=== PATIENT | male | born 1980 | race Caucasian/White ===

== ENCOUNTER → 2020-02-09 11:39 | Outpatient (BNVA) | payer BC, SELFPAY | PROVIDERS: PCP Internal Medicine; Referring Provider Internal Medicine; Visit Provider Internal Medicine Endocrinology, Diabetes & Metabolism | DX: Z76.89 Persons encountering health services in other specified circumstances (principal) ==

== ENCOUNTER 2020-04-06 09:26 | Day surgery (SDC) | payer BC, SELFPAY ==
[2020-03-25 20:09] VITALS: BMI 28.5
--- NOTE | 2020-04-05 10:17 | HO.ANESPROP2 ---
HPI - Anesthesia Eval Consult details Narrative: 39yo M for Colonoscopy PMFSH Past Medical History Medical History Asthma Hypogonadotropic hypogonadism Family History Family History Father Colon cancer Mother No problems noted. Surgical History Surgical History No history of previous surgery Social History Social History Smoking Status: Never smoker Second Hand Smoke Exposure: No Use of substances other than those prescribed or required for medical reasons: No Advance Directives: No Advance Directives Information Provided: No Advance Directives on File: No Recently lost weight without trying: No Meds Allergies Allergy/AdvReac Type Severity Reaction Status Date / Time No Known Allergies Allergy Verified 03/25/20 20:17 [No Known Allergies*] Home Medications Medication Instructions Recorded Confirmed Type albuterol sulfate 90 mcg/actuation 2 puff INHALATION QID PRN 02/09/20 03/25/20 History aerosol inhaler montelukast 10 mg tablet 10 mg PO DAILY 02/09/20 03/25/20 History testosterone cypionate 200 mg/mL 80 mg IM QWEEK 02/09/20 03/25/20 History intramuscular oil Exam Exam Date and Time: April 05, 2020 1017 Height,Weight and Vital Signs: Height 6 ft Weight 95.254 kg Assessment and Plan Assessment Anesthesia Assessment: Chart Reviewed
--- NOTE | 2020-04-06 10:03 | P.CONAN_ITS ---
History of Present Illness Consult details Consult date: 04/06/20 FORMERLY [facility], [facility] Past Medical History Medical History Asthma Hypogonadotropic hypogonadism Family History Family History Father Colon cancer Mother No problems noted. Surgical History Surgical History No history of previous surgery Social History Social History Smoking Status: Never smoker Second Hand Smoke Exposure: No Meds Allergies Allergy/AdvReac Type Severity Reaction Status Date / Time No Known Allergies Allergy Verified 03/25/20 20:17 [No Known Allergies*] Home Medications Medication Instructions Recorded Confirmed Type albuterol sulfate 90 mcg/actuation 2 puff INHALATION QID PRN 02/09/20 03/25/20 History aerosol inhaler montelukast 10 mg tablet 10 mg PO DAILY 02/09/20 03/25/20 History testosterone cypionate 200 mg/mL 80 mg IM QWEEK 02/09/20 03/25/20 History intramuscular oil Physical Exam Vital Signs: Vital Signs: Body Mass Index 28.5 Results Labs Labs: All other labs normal.
[2020-04-06 10:12] VITALS: BP 124/81; PULSE 71; RESP 18; TEMP 36.2; O2SAT 96
--- NOTE | 2020-04-06 10:31 | PM.OP ---
Brief Operative Note Date of Service: 04/06/20 Pre-op diagnosis: Colon cancer screening, family history of colon cancer (Dad in his 60's) Post-op diagnosis: other (Colon polyps, diverticulosis) Procedure: COLONOSCOPY TO CECUM WITH BIOPSIES AND SNARE POLYPECTOMY Consent: Indications for the procedure and potential complications of bleeding, perforation, reaction to medications and missed diagnosis were discussed with the patient and informed consent was obtained. Instrument: Olympus PCF H 190 L variable stiffness pediatric colonoscope Monitoring: Vital signs and clinical assessment, intermittent blood pressure monitoring, continuous EKG monitoring, Pulse oximetry and Carbon Dioxide monitoring were done throughout the procedure. Colon withdrawl time was 22 minutes. Procedure: The patient was placed in the left lateral decubitis position and pre-procedure medications were administered. After a digital rectal examination of the ano-rectum, the video colonoscope was inserted into the rectum and advanced through the colon to the cecum. The colonoscope was slowly withdrawn in a retrograde panoramic fashion and the colon mucosa was carefully examined including a retroflexed view of the rectum. Findings and interventions are described below. Procedure Difficulty: There was excessive spasm in the colon with some loop formation. Findings: Terminal Ileum: Not evaluated Cecum: Normal Ascending Colon: Normal Transverse Colon: A 4-5 mm sessile polyp removed with a cold biopsy. A 10 mm sessile polyp in the distal transverse colon removed with a hot snare. Descending Colon: Moderate diverticulosis Sigmoid Colon: Moderate diverticulosis Rectum: Normal Ano-rectum: Hypertrophied anal papilla Colon preparation: Good after copious irrigation. Impression and Post Procedure Diagnosis: Colonoscopy Findings: Two small to medium sized polyps removed Moderate diverticulosis seen in the left colon Plan: Await pathology results Patient has an appointment on 04/26/20 in the GI Clinic with Johanna Clay M.D.. Repeat Colonoscopy interval based on path results - in 3-5 years if polyps are adenomatous and due to positive family history of colon cancer (dad in his 60's). Above findings were reviewed with the patient and colon polyps and diverticulosis handouts were given in the discharge area Surgeon: Johanna Clay MD Anesthesia: MAC (Dr Marcos) Media Relations Coordinator: [place] Estimated blood loss (mL): 0 Pathology: other (A. TC polyps x 2) Condition: stable Disposition: PACU
--- NOTE | 2020-04-06 10:31 | W.PM.OPN ---
Operative Note Operative Note Date of Service: 04/06/20 Narrative: Pre-op diagnosis: Colon cancer screening Post-op diagnosis: other (colon polyps, diverticulosis, hemorrhoids) Procedure: COLONOSCOPY TILL CECUM WITH BIOPSIES Consent: Indications for the procedure and potential complications of bleeding, perforation, reaction to medications and missed diagnosis were discussed with the patient and informed consent was obtained. Instrument: Olympus PCF H 190 L variable stiffness pediatric colonoscope Monitoring: Vital signs and clinical assessment, intermittent blood pressure monitoring, continuous EKG monitoring, Pulse oximetry and Carbon Dioxide monitoring were done throughout the procedure. Colon withdrawl time was 20 minutes. Procedure: The patient was placed in the left lateral decubitis position and pre-procedure medications were administered. After a digital rectal examination of the ano-rectum, the video colonoscope was inserted into the rectum and advanced through the colon to the cecum. The colonoscope was slowly withdrawn in a retrograde panoramic fashion and the colon mucosa was carefully examined including a retroflexed view of the rectum. Findings and interventions are described below. Procedure Difficulty: Without difficulty Findings: Terminal Ileum: Not evaluated Cecum: Normal Ascending Colon: Normal Transverse Colon: Three 4-5 mm sessile polyps removed with a cold bx. Descending Colon: Moderate diverticulosis Sigmoid Colon: Two 3-5 mm diminutive appearing polyps removed with a cold bx. Moderate diverticulosis. Normal end to end anastomosis noted at 20 cms with a few sutures in place. Rectum: Normal Ano-rectum: Moderate internal hemorrhoids Colon preparation: Good Impression and Post Procedure Diagnosis: Colonoscopy Findings: Five small polyps removed. Moderate diverticulosis seen in the left colon. Normal end to end anastomosis noted at 20 cms with a few sutures in place. Moderate hemorrhoids on retroflexed exam. Plan: Await pathology results Patient has an appointment on 04/19/20 in the GI Clinic with Lashonda Hall FNP-BC. Repeat Colonoscopy interval based on path results - in 3-5 years if polyps are adenomatous and 10 years if polyps are hyperplastic. Above findings were reviewed with the patient and colon polyps and diverticulosis handouts were given in the discharge area Surgeon: Johanna Clay MD Anesthesia: MAC (Dr Marcos) Estimated blood loss (mL): 0 Pathology: other (A. TC polyps x 3, B. SC polyps x 2) Condition: stable Disposition: PACU
--- NOTE | 2020-04-06 10:31 | MHC.SHP ---
Pre-Procedural Eval Section A The patient is an INPATIENT: No The History & Physical has been completed within 30 days and I have reviewed it.: No Section B Chief Complaint: Screening Details of Present Illness: Colon cancer screening, FH of colon cancer. Denies dysphagia, heartburn, nausea or vomiting, change in appetite or weight. Patient denies change in bowel habits, black stools or rectal bleeding He was taking supplements which he discontinued several weeks ago. Takes Ibuprofen 250 mg, three tab 5 times a week. Sister recently diagnosed with breast cancer at age 40 yrs. Paternal cousin diagnosed with testicular cancer in his 30's. Relevant Family History (Specify if Yes): Yes Relevant Social History: None Present Medications: see Short Stay Collaborative assessment Medical History: Significant History (Hypogonadotropic hypogonadism) History of Previous Operations: No relevant previous surgery Allergies: Allergies Allergy/AdvReac Type Severity Reaction Status Date / Time No Known Allergies Allergy Verified 03/25/20 20:17 [No Known Allergies*] Review of Systems Sugical H&P ROS: Negative: Constitution, Cardiovascular, Respiratory and Gastrointestinal Exam Surgical H&P Exam: Normal: Heart, Normal: Lungs, Normal: Extremities and Normal: Abdomen Plan Diagnosis/Plan: Unchanged I have reviewed the history and physical and performed a pertinent physical examination on my patient. No changes have occurred unless specified.
[2020-04-06] MEDS: Lactated Ringers 1,000 ML 100 ML IVCONT (10:36)
--- NOTE | 2020-04-06 10:49 | P.CONAN_ITS ---
[facility] Past Medical History Medical History Asthma Hypogonadotropic hypogonadism Family History Family History Father Colon cancer Mother No problems noted. Surgical History Surgical History No history of previous surgery Social History Social History Smoking Status: Never smoker Second Hand Smoke Exposure: No Use of substances other than those prescribed or required for medical reasons: No Advance Directives: No Advance Directives Information Provided: No Advance Directives on File: No Recently lost weight without trying: No Meds Allergies Allergy/AdvReac Type Severity Reaction Status Date / Time No Known Allergies Allergy Verified 03/25/20 20:17 [No Known Allergies*] Home Medications Medication Instructions Recorded Confirmed Type albuterol sulfate 90 mcg/actuation 2 puff INHALATION QID PRN 02/09/20 03/25/20 History aerosol inhaler montelukast 10 mg tablet 10 mg PO DAILY 02/09/20 03/25/20 History testosterone cypionate 200 mg/mL 80 mg IM QWEEK 02/09/20 03/25/20 History intramuscular oil Exam Exam Date and Time: April 06, 2020 1049 Height,Weight and Vital Signs: Height 6 ft Weight 95.254 kg Last Vital Signs Temp 97.1 F 04/06/20 10:12 Pulse 71 04/06/20 10:12 Resp 18 04/06/20 10:12 BP 124/81 04/06/20 10:12 Pulse Ox 96 04/06/20 10:12 Airway Mallampati Class: II TM Dist: >3cm Neck ROM: Full Heart: RRR Lungs: cTA
[2020-04-06 11:22] VITALS: BP 102/53; PULSE 61; RESP 16; TEMP 36.1; O2SAT 98
[2020-04-06 11:37] VITALS: BP 123/77; PULSE 72; RESP 18; O2SAT 99
[2020-04-06 11:52] VITALS: BP 138/90; PULSE 65; RESP 20; O2SAT 99
== END 2020-04-06 12:27 | disposition home or self-care (01) ==
PROVIDERS: PCP Internal Medicine; Visit Provider Internal Medicine Gastroenterology
PROC: 0DJD8ZZ Inspection of Lower Intestinal Tract, Via Natural or Artificial Opening Endoscopic (ICD-10-PCS; CPT 45378; principal; 2020-04-06 10:50)
DX: Z12.11 Encounter for screening for malignant neoplasm of colon (principal); K63.5 Polyp of colon; K57.30 Diverticulosis of large intestine without perforation or abscess without bleeding; K64.8 Other hemorrhoids; Z98.0 Intestinal bypass and anastomosis status; J45.909 Unspecified asthma, uncomplicated; Z79.51 Long term (current) use of inhaled steroids; Z80.0 Family history of malignant neoplasm of digestive organs
CPT/HCPCS: 45380; 88305

== ENCOUNTER 2020-04-15 12:18 | Outpatient (REF) | payer BC, SELFPAY ==
[2020-04-15 12:45] LABS: COVID-19 Test Negative (Negative)
== END 2020-04-15 12:19 | disposition home or self-care (01) ==
LOC: HO.LAB 12:18
PROVIDERS: PCP Internal Medicine; Visit Provider Internal Medicine
DX: Z20.828 Contact with and (suspected) exposure to other viral communicable diseases (principal)
CPT/HCPCS: 36415; 87635; C9803

== ENCOUNTER 2020-04-19 14:44 | Outpatient (REF) | payer BC, SELFPAY ==
[2020-04-19 15:02] LABS: COVID-19 Test Negative (Negative); IDNOW Serial# 55D5AD1C
== END 2020-04-19 14:45 | disposition home or self-care (01) ==
LOC: HO.LAB 14:44
PROVIDERS: Visit Provider Internal Medicine
DX: Z20.828 Contact with and (suspected) exposure to other viral communicable diseases (principal)
CPT/HCPCS: 36415; 87635; C9803

== ENCOUNTER → 2020-04-26 12:43 | Outpatient (BNVA) | payer BC, SELFPAY | PROVIDERS: PCP Internal Medicine; Visit Provider Internal Medicine Gastroenterology ==

== ENCOUNTER 2020-05-06 10:59 | Outpatient (REF) | payer BC, SELFPAY ==
[2020-05-06 14:28] LABS: Cholesterol 170 mg/dL; HDL Cholesterol 50 mg/dL; Hematocrit 45.4 % (42-52); Hemoglobin 15.6 g/dl (14.0-18.0); LDL Cholesterol Calculated 106 mg/dl; Triglycerides 73 mg/dL
[2020-05-06 14:48] LABS: PSA,Total (Free>4and<10) 0.87 ng/mL (0.00-4.00)
[2020-05-07 10:52] LABS: Sex Hormone Binding Globulin 24 nmol/L (10-50)
[2020-05-11 15:12] LABS: Testosterone, Free 87.2 pg/mL (35.0-155.0); Testosterone, Total 447 ng/dL (250-1100)
[2020-05-15 11:42] LABS: Testosterone-Albumin 4.4 g/dL (3.6-5.1); Testosterone-Bioavailable 121.9 ng/dL (110.0-575.0); Testosterone-Free 60.5 pg/mL (46.0-224.0); Testosterone-SHBG 25 nmol/L (10-50); Testosterone-Total 372 ng/dL (250-1100)
== END 2020-05-06 11:00 | disposition home or self-care (01) ==
LOC: HO.HMGCLDS 10:59
PROVIDERS: PCP Internal Medicine; Visit Provider Internal Medicine Endocrinology, Diabetes & Metabolism
DX: E23.0 Hypopituitarism (principal)
CPT/HCPCS: 36415; 80061; 84153; 84270; 84402; 84403; 85014; 85018

== ENCOUNTER → 2020-05-31 14:24 | Outpatient (BNVA) | payer BC, SELFPAY | PROVIDERS: PCP Internal Medicine; Visit Provider Internal Medicine Endocrinology, Diabetes & Metabolism ==

== ENCOUNTER → 2021-01-20 09:17 | Outpatient (BNVA) | payer OTHER, SELFPAY | PROVIDERS: PCP Internal Medicine; Visit Provider Physician Assistant | DX: S76.311A Strain of muscle, fascia and tendon of the posterior muscle group at thigh level, right thigh, initial encounter (principal); Y93.02 Activity, running | CPT/HCPCS: 99203 ==

== ENCOUNTER → 2021-02-09 13:17 | Outpatient (BNVA) | payer BC, SELFPAY | PROVIDERS: PCP Internal Medicine; Visit Provider Internal Medicine ==

== ENCOUNTER 2021-03-16 10:34 | Outpatient (REF) | payer BC, SELFPAY ==
[2021-03-16 13:52] LABS: MANUAL DIFF FLAG NO
[2021-03-16 13:55] LABS: Basophils Percent Auto 0.9 % (0-2); Eosinophils Absolute Auto 0.1 X10*3/uL (0.0-0.4); Eosinophils Percent Auto 1.7 % (0-4); Hematocrit 46.5 % (42.0-52.0); Hemoglobin 15.7 g/dl (14.0-18.0); Lymphocytes Absolute Auto 1.5 X10*3/uL (1.2-4.9); Lymphocytes Percent Auto 43.3 % (20-40); Mean Corpuscular HGB Conc 33.8 g/dl (31.0-36.0); Mean Corpuscular Hemoglobin 31.1 pg (27.0-33.0); Mean Corpuscular Volume 92.1 fL (80.0-98.0); Mean Platelet Volume 11.6 fL (9.4-12.4); Monocytes Absolute Auto 0.3 X10*3/uL (0.1-1.2); Monocytes Percent Auto 9.4 % (2-11); Neutrophils Absolute Auto 1.6 x10*3/uL (2.0-8.3); Neutrophils Percent Auto 44.7 % (45-73); Platelet Count 196 X10*3/uL (160-400); Red Blood Count 5.05 X10*6/uL (4.60-5.80); Red Cell Distribution Width 12.2 % (11.0-16.0); White Blood Count 3.5 X10*3/uL (4.8-10.8)
[2021-03-16 14:14] LABS: Alanine Aminotransferase 44 U/L (0-40); Albumin Level 4.4 g/dL (3.5-5.0); Alkaline Phosphatase 55 U/L (39-117); Anion Gap 10 (12-20); Aspartate Amino Transferase 33 U/L (5-37); Bilirubin Total 0.9 mg/dL (0.0-1.0); Blood Urea Nitrogen 14 mg/dL (9-16); Calcium 9.9 mg/dL (8.4-10.2); Carbon Dioxide 30 mmol/L (22-29); Chloride 103 mmol/L (96-108); Cholesterol 165 mg/dL; Estimated Glomerular Filt Rate > 60; Glucose Fasting 80 mg/dL (60-99); HDL Cholesterol 53 mg/dL; LDL Cholesterol Calculated 99 mg/dl; Potassium 3.9 mmol/L (3.3-5.1); Sodium 139 mmol/L (135-145); Total Protein 7.3 g/dL (6.5-8.0); Triglycerides 68 mg/dL
[2021-03-16 22:59] LABS: Prostate Specific Antigen 0.74 ng/mL (<0.05-4.0)
[2021-03-17 23:47] LABS: LDL Cholesterol Direct 95 mg/dL (<100)
[2021-03-18 06:07] LABS: Sex Hormone Binding Globulin 32 nmol/L (10-50)
[2021-03-21 16:46] LABS: Testosterone, Free 70.4 pg/mL (35.0-155.0); Testosterone, Total 466 ng/dL (250-1100)
== END 2021-03-16 10:35 | disposition home or self-care (01) ==
LOC: HO.HMGCLDS 10:34
PROVIDERS: PCP Internal Medicine; Visit Provider Internal Medicine
DX: Z00.00 Encounter for general adult medical examination without abnormal findings (principal); Z12.5 Encounter for screening for malignant neoplasm of prostate; E23.0 Hypopituitarism; E11.9 Type 2 diabetes mellitus without complications
CPT/HCPCS: 36415; 80053; 80061; 83721; 84153; 84270; 84402; 84403; 85025

== ENCOUNTER 2021-07-04 10:13 | Outpatient (REF) | payer BC, SELFPAY ==
[2021-07-04 11:40] LABS: Hematocrit 49.6 % (42.0-52.0); Hemoglobin 16.5 g/dl (14.0-18.0)
[2021-07-04 12:11] LABS: Prostate Specific Antigen 0.94 ng/mL (<0.05-4.0)
[2021-07-05 17:25] LABS: Sex Hormone Binding Globulin 22 nmol/L (10-50)
[2021-07-08 16:37] LABS: Testosterone, Free 119.6 pg/mL (35.0-155.0); Testosterone, Total 509 ng/dL (250-1100)
== END 2021-07-04 10:14 | disposition home or self-care (01) ==
LOC: HO.HMGCLDS 10:13
PROVIDERS: Visit Provider Internal Medicine
DX: Z12.5 Encounter for screening for malignant neoplasm of prostate (principal); E23.0 Hypopituitarism
CPT/HCPCS: 36415; 84153; 84270; 84402; 84403; 85014; 85018

== ENCOUNTER → 2021-08-26 14:52 | Outpatient (BNVA) | payer BC, SELFPAY | PROVIDERS: PCP Internal Medicine; Visit Provider Internal Medicine Endocrinology, Diabetes & Metabolism | DX: E23.0 Hypopituitarism (principal) ==

== ENCOUNTER 2022-08-16 09:49 | Outpatient (REF) | payer BC, SELFPAY ==
[2022-08-16 11:22] LABS: MANUAL DIFF FLAG NO
[2022-08-16 11:33] LABS: Basophils Percent Auto 0.8 % (0-2); Eosinophils Absolute Auto 0.1 X10*3/uL (0.0-0.4); Eosinophils Percent Auto 1.6 % (0-4); Hematocrit 50.3 % (42.0-52.0); Hemoglobin 17.5 g/dl (14.0-18.0); Imm Gran Abs Auto 0.01 X10*3/uL (0.00-0.03); Imm Gran Pct Auto 0.3 % (0.0-0.4); Lymphocytes Absolute Auto 1.2 X10*3/uL (1.2-4.9); Lymphocytes Percent Auto 30.3 % (20-40); Mean Corpuscular HGB Conc 34.8 g/dl (31.0-36.0); Mean Corpuscular Hemoglobin 31.9 pg (27.0-33.0); Mean Corpuscular Volume 91.6 fL (80.0-98.0); Mean Platelet Volume 11.1 fL (9.4-12.4); Monocytes Absolute Auto 0.3 X10*3/uL (0.1-1.2); Monocytes Percent Auto 8.2 % (2-11); Neutrophils Absolute Auto 2.2 x10*3/uL (2.0-8.3); Neutrophils Percent Auto 58.8 % (45-73); Platelet Count 217 X10*3/uL (160-400); Red Blood Count 5.49 X10*6/uL (4.60-5.80); Red Cell Distribution Width 12.3 % (11.0-16.0); White Blood Count 3.8 X10*3/uL (4.8-10.8)
[2022-08-16 12:28] LABS: Alanine Aminotransferase 69 U/L (0-40); Albumin Level 4.5 g/dL (3.5-5.0); Alkaline Phosphatase 64 U/L (39-117); Anion Gap 11 (12-20); Aspartate Amino Transferase 41 U/L (5-37); Bilirubin Total 0.8 mg/dL (0.0-1.0); Blood Urea Nitrogen 10 mg/dL (9-16); Calcium 9.6 mg/dL (8.4-10.2); Carbon Dioxide 29 mmol/L (22-29); Chloride 106 mmol/L (96-108); Cholesterol 195 mg/dL; Estimated Glomerular Filt Rate > 60; Glucose Fasting 86 mg/dL (60-99); HDL Cholesterol 42 mg/dL; LDL Cholesterol Calculated 134 mg/dl; Potassium 4.5 mmol/L (3.3-5.1); Sodium 141 mmol/L (135-145); Thyroid Stimulating Hormone 1.21 uIU/mL (0.32-4.0); Total Protein 7.2 g/dL (6.5-8.0); Triglycerides 97 mg/dL
[2022-08-23 18:44] LABS: Testosterone, Free 312.4 pg/mL (35.0-155.0); Testosterone, Total 1038 ng/dL (250-1100)
== END 2022-08-16 09:50 | disposition home or self-care (01) ==
LOC: HO.HMGCLDS 09:49
PROVIDERS: PCP Internal Medicine; Visit Provider Internal Medicine
DX: E23.0 Hypopituitarism (principal); D64.9 Anemia, unspecified; N28.9 Disorder of kidney and ureter, unspecified; E03.9 Hypothyroidism, unspecified; E78.5 Hyperlipidemia, unspecified
CPT/HCPCS: 36415; 80053; 80061; 84402; 84403; 84443; 85025

== ENCOUNTER → 2022-08-24 13:01 | Outpatient (BNVA) | payer BC, SELFPAY | PROVIDERS: PCP Internal Medicine; Visit Provider Internal Medicine Endocrinology, Diabetes & Metabolism ==

== ENCOUNTER 2022-08-30 13:56 | Outpatient (REF) | payer BC, SELFPAY ==
[2022-08-30 17:04] LABS: Ferritin 180 ng/mL (20-250)
[2022-09-08 15:59] LABS: Testosterone, Free 62.9 pg/mL (35.0-155.0); Testosterone, Total 271 ng/dL (250-1100)
== END 2022-08-30 13:57 | disposition home or self-care (01) ==
LOC: HO.HMGCLDS 13:56
PROVIDERS: PCP Internal Medicine; Visit Provider Internal Medicine Endocrinology, Diabetes & Metabolism
DX: E23.0 Hypopituitarism (principal)
CPT/HCPCS: 36415; 82728; 84402; 84403

== ENCOUNTER 2022-09-05 13:05 | Outpatient (REF) | payer BC, SELFPAY ==
[2022-09-05 14:19] LABS: Appearance Urine Clear; Color Urine Yellow; Glucose Urine UA Negative (Negative); Leukocyte Esterase Urine Negative (Negative); Nitrite Urine Negative (Negative); Urine Blood Negative (Negative); Urine Ketones Negative (Negative); Urine Protein Negative (Neg-Trace)
== END 2022-09-05 13:06 | disposition home or self-care (01) ==
LOC: HO.HMGCLDS 13:05
PROVIDERS: PCP Internal Medicine; Visit Provider Internal Medicine
DX: R39.9 Unspecified symptoms and signs involving the genitourinary system (principal)
CPT/HCPCS: 81003

== ENCOUNTER 2022-12-22 15:31 | Outpatient (AMB) | payer BC, SELFPAY ==
--- NOTE | 2022-12-22 16:18 | AM.OFFWIN_ITS ---
Intake Vital Signs 12/22/22 16:19 Height 6 ft Weight 229 lb BMI 31.1 BP 112/78 Blood Pressure Location Lt brachial Position Sitting Pulse 72 Pulse Source Pulse Oximeter Pulse Oximetry (%) 97 Oxygen Delivery Method Room Air Intake Visit Reasons: EST/tore right shoulder Intake Note: Patient here for tore right shoulder at the Gym today. Patient Tobacco Use Status: Never used Tobacco Allergies No Known Allergies [No Known Allergies*] Allergy (Verified 12/22/22 16:21) Do you need a note to return to daycare/school/sports/work: Yes HPI HPI Comments History of Present Illness Details This is a 42-year-old male who presents to the office today for sick visit. Patient states he was doing bench press at the gym with heavier weights than normal and he felt a ?pop? and ?tear? of his right pectoralis muscle. Patient states he has mild pain to the right pectoralis at this time. He denies any numbness/weakness/paresthesias. [facility] Medical History (Updated 12/22/22 @ 17:16 by [employer]) Pectoralis muscle strain Asthma Elevated LFTs Asthma Hypogonadotropic hypogonadism Surgical History History of colonoscopy Family History Paternal Grandfather Colon cancer Mother No problems noted. Father Alive and well Social History Housing: House Alcohol intake: current Alcohol intake frequency: 3 or more drinks per day Alcohol type: beer Patient Tobacco Use Status: Never used Tobacco e-Cigarette/Vaping Use: Never Used Second Hand Smoke Exposure: No service: No Current occupational status: employed Cognitive needs: No Hearing needs: No Vision needs: No Review of Systems Const All systems reviewed & are unremarkable except as noted in HPI and below Reports no additional complaints Eyes Reports no additional complaints ENT Reports no additional complaints Card Reports no additional complaints Resp Reports no additional complaints GI Reports no additional complaints Reports no additional complaints Musc Reports no additional complaints Skin/Breast Reports system reviewed and no additional complaints, except as documented Neuro Reports no additional complaints Psych Reports no additional complaints Endo Reports no additional complaints Ty/Lymph Reports no additional complaints Aller/Immun Reports no additional complaints Physical Exam Vital Signs: Last Vital Signs Pulse 72 12/22/22 16:19 BP 112/78 12/22/22 16:19 Pulse Ox 97 12/22/22 16:19 Oxygen Delivery Method Room Air 12/22/22 16:19 BMI result Body Mass Index 31.1 Const General: cooperative, healthy appearing, no acute distress and well developed Orientation/consciousness: patient oriented x3 HEENT Head: Yes normal to inspection Ears: hearing grossly normal bilaterally General nose exam: Normal external nose present Face and sinus: Yes normal facial exam Mouth: Normal oral and palatal mucosa present Eyes General: appearance normal, both eyes and all related structures Pupils: Equal, round and reactive pupils present EOM: EOMs intact bilaterally Chest Other: Tenderness to palpation of the right pectoralis muscle without edema or ecchymosis. Resp Effort & Inspection: normal respiratory effort and no respiratory distress Auscultation: clear to auscultation bilaterally Cardio Rate: regular rate Rhythm: regular rhythm Heart sounds: no gallops, no murmurs and no rubs Peripheral pulses: Peripheral pulses 2+ throughout GI Inspection: No distended Palpation (GI): Soft to palpation and nontender Auscultation: normal bowel sounds Skin General skin exam: no rashes or lesions noted Neuro General: patient oriented x3 Cranial nerves: Yes CN's II-XII intact bilaterally and Yes Equal, round and reactive pupils present Gait exam (Neuro): Normal gait present Motor exam (neuro): 5/5 motor strength present throughout Extrem Other: Patient has full range of motion of the right shoulder with flexion, extension, internal/external rotation, forward flexion and, and pushing/pulling motion but he does have with some pain in his pectoralis with pushing as well as internal/external rotation. General: Yes normal to inspection, Yes full ROM and Yes no clubbing, cyanosis or edema Psych Appearance: grossly normal Mental Status: mental status grossly normal Assessment & Plan Assessment & Plan (1) Pectoralis muscle strain: Code(s): S29.011A - Strain of muscle and tendon of front wall of thorax, initial encounter Qualifiers: Encounter type: initial encounter Qualified Code(s): S29.011A - Strain of muscle and tendon of front wall of thorax, initial encounter Plan This is a 42-year-old male who presents to the office complaining of possible pectoralis muscle tear/strain. Patient states he was doing a bench press at the gym when he felt a ?pop? and a ?tear ?. On physical examination, patient has full range of motion of the shoulder in all planes but he does have some pain with range of motion he has tenderness to palpation of the right pectoralis muscle. Check x-ray of the right shoulder to evaluate for avulsion fracture. Recommend rest/activity modification, ice to the area, and elevation of the extremity. Continue with acetaminophen/ibuprofen for pain management as long as patient has no medical contraindications. Patient was given 5% lidocaine patches to the area as well as p.o. methocarbamol 750 mg 3 times daily as needed for muscle spasms. Patient was given orthopedic referral for further evaluation and management. Patient was instructed to stay out of gym until he is fully healed. Patient verbalizes understanding and he is in agreement with the plan. Orders: Orders XR shoulder RT min 2V Today S29.011A - Strain of muscle and tendon of front wall of thorax, initial encounter Referrals Orthopedics Referral S29.011A - Strain of muscle and tendon of front wall of thorax, initial encounter Medications: New methocarbamol 750 mg PO Q8H PRN 21 tabs 0RF muscle spasm lidocaine 5% leave on most painful area for up to 12 hrs 1 patch topical DAILY 15 ea 0RF Coding Level of Care Code Est Pt Level 3 (94870) Diagnoses Pectoralis muscle strain, initial encounter S29.011A Encounter type: initial encounter
[2022-12-22 16:19] VITALS: BP 112/78; PULSE 72; O2SAT 97; BMI 31.1
== END 2022-12-22 17:07 | disposition home or self-care (01) ==
PROVIDERS: PCP Internal Medicine; Visit Provider Physician Assistant Medical
DX: S29.011A Strain of muscle and tendon of front wall of thorax, initial encounter (principal)
CPT/HCPCS: 99213

== ENCOUNTER 2022-12-22 16:56 | Outpatient (REF) | payer BC, SELFPAY ==
--- NOTE | ~2022-12-22 | XR_ITS ---
EXAMINATION: XR SHOULDER, RIGHT CLINICAL INFORMATION: Strain COMPARISON: None available. TECHNIQUE: AP external rotation, Grashey, scapular Y, and axillary views of the right shoulder. FINDINGS: No fracture. Glenohumeral and acromioclavicular alignment is anatomic with normal joint space. No abnormal soft tissue calcifications. XR/XR shoulder RT min 2V IMPRESSION: No acute osseous abnormality.
== END 2022-12-22 16:57 | disposition home or self-care (01) ==
LOC: HO.HMGCX 16:56
PROVIDERS: PCP Internal Medicine; Visit Provider Physician Assistant Medical
DX: S29.011A Strain of muscle and tendon of front wall of thorax, initial encounter (principal)
CPT/HCPCS: 73030

== ENCOUNTER 2023-05-21 12:40 | Outpatient (AMB) | payer BC, SELFPAY ==
[2023-05-21 12:41] VITALS: BP 122/80; PULSE 87; O2SAT 97; BMI 30.1
--- NOTE | 2023-05-21 12:41 | A.OFFPC_ITS ---
Vital Signs 05/21/23 12:41 Height 6 ft Weight 222 lb BMI 30.1 BP 122/80 Blood Pressure Location Lt brachial Position Sitting Pulse 87 Pulse Source Pulse Oximeter Pulse Oximetry (%) 97 Oxygen Delivery Method Room Air Intake Visit Reasons: Annual Exam Segment Block Layer Required: No Admittance Attendant: Not Required per policy Accompanied by: Self / Same As Patient Allergies No Known Allergies [No Known Allergies*] Allergy (Verified 05/21/23 12:42) Medication List - Last Reconciled 05/23/23 by Wesly Presley MD albuterol sulfate 90 mcg/actuation 2 puffs inhalation QID PRN bisacodyl (Dulcolax (bisacodyl)) 20 mg (4 x 5 mg) PO ONCE 1 day fluticasone propionate 220 mcg/actuation 2 puffs inhalation BID fluticasone propionate 44 mcg/actuation (Flovent HFA) 2 puffs inhalation BID methocarbamol 750 mg PO Q8H PRN montelukast (Singulair) 10 mg PO BEDTIME polyethylene glycol 3350 (Miralax) 238 grams PO ONCE 1 day syringe with needle, safety As directed syringe with needle, safety (BD Integra Syringe) Once a week testosterone cypionate 70 mg (0.35 mL) IM QWEEK 30 days Tobacco use date assessed: 05/21/23 Dental Screening Dental Screen Date: 05/21/23 Did you have a dental visit in the last 12 months?: Yes Did you have a dental problem in the last 6 months where you did not have access to dental care?: No Was dental information given to patient?: Patient has dentist HPI Annual Exam HPI Details asthma and androgen def; doing well PENDING SALE TO [facility] Medical History (Updated 12/22/22 @ 17:16 by MIGUEL Gaming) Pectoralis muscle strain Asthma Elevated LFTs Asthma Hypogonadotropic hypogonadism Surgical History History of colonoscopy Family History Paternal Grandfather Colon cancer Mother No problems noted. Father Alive and well Social History Housing: House Alcohol intake: current Alcohol intake frequency: 3 or more drinks per day Alcohol type: beer Patient Tobacco Use Status: Never used Tobacco e-Cigarette/Vaping Use: Never Used Second Hand Smoke Exposure: No service: No Current occupational status: employed Cognitive needs: No Hearing needs: No Vision needs: No Questionnaire PHQ-9 Over the last 2 weeks, how often have you been bothered by any of the following problems? 1. Little interest or pleasure in doing things: not at all 2. Feeling down, depressed, or hopeless: not at all 3. Trouble falling or staying asleep, or sleeping too much: not at all 4. Feeling tired or having little energy: not at all 5. Poor appetite or overeating: not at all 6. Feeling bad about yourself - or that you are a failure or have let yourself or your family down: not at all 7. Trouble concentrating on things, such as reading the newspaper or watching television: not at all 8. Moving or speaking so slowly that other people could have noticed. Or the opposite - being so fidgety or restless that you have been moving around a lot more than usual: not at all 9. Thoughts that you would be better off or of hurting yourself in some way: not at all Total score: 0 Depression Screening Interpretation: Negative Depression Screening Done: Yes 87973 - PHQ-9 Billing: Yes Source: Developed by Drs. Hakan Pickens, Paris Anglin, Ashwin Galindo and colleagues, with an educational loki from [employer]. Thrive Questionnaire Date Thrive assessed: 05/21/23 I am a: Patient What is your living situation today?: I have a steady place to live Within the past 12 months, did the food you bought not last and you didn't have the money to get more?: Never true Within the past 12 months, did you worry whether your food would run out before you got money to buy more?: Never true Do you have trouble paying for medicines?: No Do you have trouble getting transportation to medical appointments?: No Do you have trouble paying your heating and electricity bill?: No Do you have trouble taking care of your child, family member or friend?: No Do you have trouble with day-to-day activities such as bathing, preparing meals, shopping, managing finances, etc.?: No Are you currently unemployed and looking for a job?: No Are you interested in more education?: No Please select the resources that you would like help with: None THRIVE Score: 0 AUDIT C Alcohol Use Questionnaire (AUDIT-C) 1. How often do you have a drink containing alcohol?: 4 or more times a week 2. How many drinks containing alcohol do you have on a typical day when you are drinking?: 3 or 4 3. How often do you have six or more drinks on one occasion?: Monthly Total Score: 7 Score Reviewed/Action Taken: Yes AMINATA-7 AMB Questionnaire AMINATA-7 Date AMINATA - 7 assessed: 05/21/23 Feeling nervous, anxious, or on edge: 0 = Not at all Not being able to stop or control worryin = Not at all Worrying too much about different things: 0 = Not at all Trouble relaxin = Not at all Being so restless that it is hard to sit still: 0 = Not at all Becoming easily annoyed or irritable: 0 = Not at all Feeling afraid as if something awful might happen: 0 = Not at all Total AMINATA-7 score (0-4 normal; 5-9 mild; 10-14 moderate; 15-21 severe): 0 Source: Developed by Drs. Hakan Pickens, Paris Anglin, Ashwin Galindo and colleagues, with an educational loki from [employer]. AMINATA-7 Assessment Billing AMINATA-7 Assessment Tool: AMINATA-7 Assessment 62790 Review of Systems Const Denies chills, Denies fatigue, Denies headache(s) and Denies weight loss Eyes Denies change in vision, Denies diplopia and Denies eye pain ENT Denies vertigo, Denies dizziness, Denies headache(s) and Denies nasal discharge Card Denies chest pain, Denies rapid heart rate and Denies dyspnea on exertion Resp Denies chest congestion, Denies cough, Denies pain with cough and Denies dyspnea on exertion GI Denies abdominal pain, Denies hematochezia and Denies change in bowel habits Musc Denies myalgias, Denies arthralgias and Denies joint swelling Skin/Breast Denies lesions and Denies unusual bruising Neuro Denies vertigo, Denies dizziness, Denies headache(s) and Denies focal weakness Endo Denies fatigue Physical exam (Primary Care) Vital Signs: Last Vital Signs Pulse 87 05/21/23 12:41 BP 122/80 05/21/23 12:41 Pulse Ox 97 05/21/23 12:41 Oxygen Delivery Method Room Air 05/21/23 12:41 BMI result Body Mass Index 30.1 Tobacco/Smoking Status: Tobacco use Status Tobacco use date assessed 05/21/23 05/21/23 12:43 Patient Tobacco Use Status Never used Tobacco 05/21/23 12:43 e-Cigarette/Vaping Use Never Used 05/21/23 12:43 PHQ-9: PHQ-9 Score PHQ-9: Total score 0 05/21/23 12:49 Depression Screening Interpretation: Negative Thrive Assessment: Date of Thrive Assessment Date Thrive assessed 05/21/23 05/21/23 12:43 Const General: cooperative, healthy appearing and no acute distress Orientation/consciousness: oriented to person, oriented to place and oriented to time HENMT Head: Yes normal to inspection, Yes normocephalic and Yes atraumatic Mouth: Normal oral and palatal mucosa present and tongue normal Throat: Yes posterior oropharynx normal and Yes uvula midline Eyes General: appearance normal, both eyes and all related structures Neck Neck: Yes normal visual inspection, Yes full ROM and Yes no lymphadenopathy Thyroid: Thyroid normal Carotids: normal carotid upstroke Chest Chest palpation & inspection: normal inspection of the chest Resp Effort & Inspection: normal respiratory effort and able to speak in complete sentences Auscultation: clear to auscultation bilaterally Cardio Jugular venous distension: no JVD Palpation: normal PMI Rate: regular rate Rhythm: regular rhythm Heart sounds: S1 normal heart sound present and S2 normal heart sound present GI Inspection: Yes normal to inspection Palpation (GI): Soft to palpation and No hepatosplenomegaly present Auscultation: normal bowel sounds General: Yes no CVA tenderness Back/Spine/Pelvis Back: no CVA tenderness Skin General skin exam: no rashes or lesions noted Neuro General: oriented to person, oriented to place and oriented to time Extrem General: Yes normal to inspection and Yes full ROM Assessment and Plan Assessment & Plan (1) Physical exam: Code(s): Z00.00 - Encounter for general adult medical examination without abnormal findings Plan: stable; do labs (2) Hypogonadotropic hypogonadism: Code(s): E23.0 - Hypopituitarism Plan: per endo (3) Asthma: Code(s): J45.909 - Unspecified asthma, uncomplicated Plan: stable; same rx Orders: Orders Complete Blood Count Auto Diff 05/21/23 D64.9 - Anemia, unspecified Comprehensive [place]. Panel Fast 05/21/23 N28.9 - Disorder of kidney and ureter, unspecified Testosterone, Free/Total 05/21/23 R68.82 - Decreased libido Lipid Panel 05/21/23 E78.5 - Hyperlipidemia, unspecified Prostate Specific Antigen Scr 05/21/23 Z00.00 - Encounter for general adult medical examination without abnormal findings Coding Level of Care Code Est Pt Prev Care 40-64y(35974) Diagnoses Physical exam Z00.00 Hypogonadotropic hypogonadism E23.0 Asthma J45.909 Additional Codes AMINATA-7 Assessment Billing - AMINATA-7 Assessment Tool: AMINATA-7 Assessment [id number] ([id number])
== END 2023-05-21 13:08 | disposition home or self-care (01) ==
PROVIDERS: Visit Provider Internal Medicine
DX: Z00.00 Encounter for general adult medical examination without abnormal findings (principal); E23.0 Hypopituitarism; J45.909 Unspecified asthma, uncomplicated
CPT/HCPCS: 99396

== ENCOUNTER 2023-08-24 11:15 | Day surgery (SDC) | payer BC, SELFPAY ==
--- NOTE | 2023-08-22 14:32 | HO.ANESPROP2 ---
Documented by User: Kirsty Grady NP 08/22/23 14:32 HPI - Anesthesia Eval Consult details Narrative: 42yo M for Colonoscopy [facility] Active Problems Active Problems: All Active Problems Pectoralis muscle strain (Acute) Biceps strain (Acute) Asthma (Acute) Physical exam (Acute) Serrated polyp of colon (Acute) Diverticulosis of colon (Acute) Hypogonadotropic hypogonadism (Acute) Past Medical History Medical History (Updated 12/22/22 @ 17:16 by MIGUEL [employer]) Pectoralis muscle strain Asthma Elevated LFTs Asthma Hypogonadotropic hypogonadism Family History Family History Paternal Grandfather Colon cancer Mother No problems noted. Father Alive and well Surgical History Surgical History History of colonoscopy Social History Social History Housing: House Alcohol intake: current Alcohol intake frequency: does not drink Alcohol type: beer Patient Tobacco Use Status: Never used Tobacco e-Cigarette/Vaping Use: Never Used Second Hand Smoke Exposure: No Are you DNR?: No Advance Directives: No Advance Directives Information Provided: Yes Nutrition Risks: No Nutritional Risk service: No Current occupational status: employed Cognitive needs: No Hearing needs: No Vision needs: No Meds Allergies Allergy/AdvReac Type Severity Reaction Status Date / Time No Known Allergies Allergy Verified 05/21/23 12:42 [No Known Allergies*] Home Medications ?Medication ?Instructions ?Recorded ?Confirmed ?Last Taken ?Type fluticasone propionate 44 2 puff inhalation BID 02/09/21 05/23/23 Unknown History mcg/actuation HFA aerosol inhaler (Flovent HFA) Assessment and Plan Assessment Anesthesia Assessment: Chart Reviewed Documented by User: Skye Forrest MD 08/24/23 11:54 [facility] Past Medical History Medical History (Updated 12/22/22 @ 17:16 by MIGUEL [employer]) Pectoralis muscle strain Asthma Elevated LFTs Asthma Hypogonadotropic hypogonadism Family History Family History Paternal Grandfather Colon cancer Mother No problems noted. Father Alive and well Family history of problems with anesthesia: No Surgical History Surgical History History of colonoscopy History of Problems with Anesthesia: No Social History Social History Housing: House Alcohol intake: current Alcohol intake frequency: does not drink Alcohol type: beer Patient Tobacco Use Status: Never used Tobacco e-Cigarette/Vaping Use: Never Used Second Hand Smoke Exposure: No Are you DNR?: No Advance Directives: No Advance Directives Information Provided: Yes Nutrition Risks: No Nutritional Risk service: No Current occupational status: employed Cognitive needs: No Hearing needs: No Vision needs: No Meds Allergies Allergy/AdvReac Type Severity Reaction Status Date / Time No Known Allergies Allergy Verified 05/21/23 12:42 [No Known Allergies*] Home Medications ?Medication ?Instructions ?Recorded ?Confirmed ?Last Taken ?Type fluticasone propionate 44 2 puff inhalation BID 02/09/21 05/23/23 Unknown History mcg/actuation HFA aerosol inhaler (Flovent HFA) Exam Airway Mallampati Class: II (mossing one tooth top right lateral) TM Dist: >3cm Neck ROM: Full Heart: rrr Lungs: cta Assessment and Plan Assessment Anesthesia Assessment: Anesthesia Plan Discussed Final Anesthetic Review Family History of Problems with Anesthesia: No History of Problems with Anesthesia: No NPO: Yes ASA Class: II Final Preanesthetic Review: No Changes in Pt Med Stat, Meds/Allgs Chart Reviewed and Consent Obtained/Reviewed Patient Risk: Low Procedure Risk: Low Anesthetic Plan Anesthetic Plan: MAC: Disposition: Standard PACU
[2023-08-24 11:24] VITALS: BP 140/78; PULSE 81; RESP 18; TEMP 36.8; O2SAT 97; BMI 30.1
[2023-08-24] MEDS: Lactated Ringers 1,000 ML 100 ML IVCONT (11:46)
--- NOTE | 2023-08-24 11:55 | MHC.SHP ---
Pre-Procedural Eval Section A - 24 Hr Update-Section A only Date of Service: 08/24/23 The patient is an INPATIENT: No The patient has been examined within 24 hours of the surgical procedure. The History & Physical has been completed within 30 days and I have reviewed it.: No Section B - Complete if H&P > 30 days Chief Complaint: Surveillance of colon polyps Relevant Family History (Specify if Yes): Yes Relevant Social History: None Present Medications: see Short Stay Collaborative assessment Medical History: Significant History (Pectoralis muscle strain Asthma Elevated LFTs Asthma Hypogonadotropic hypogonadism) History of Previous Operations: Relevant previous surgery/procedure and date(s) (History of colonoscopy) Allergies: Allergies Allergy/AdvReac Type Severity Reaction Status Date / Time No Known Allergies Allergy Verified 05/21/23 12:42 [No Known Allergies*] Review of Systems Sugical H&P ROS: Negative: Constitution, Cardiovascular, Respiratory and Gastrointestinal Exam Surgical H&P Exam: Normal: Heart, Normal: Lungs, Normal: Extremities and Normal: Abdomen Plan Diagnosis/Plan: Unchanged I have reviewed the history and physical and performed a pertinent physical examination on my patient. No changes have occurred unless specified. Time Spent With Patient Time: Total time managing care of this patient today ____ minutes.
[2023-08-24 14:07] VITALS: BP 110/67; PULSE 64; RESP 16; TEMP 36.6; O2SAT 97
--- NOTE | 2023-08-24 14:07 | P.OPN-COLO_ITS ---
Colonoscopy Operative Note Operative Note Date of Service: 08/24/23 Narrative: COLONOSCOPY TILL CECUM WITH BIOPSIES AND SNARE POLYPECTOMY Pre-op diagnosis: Surveillance for colon polyps. Post-op diagnosis:? Colon polyps, Diverticulosis, hemorrhoids Endoscopist:? Johanna Clay MD Anesthesia:?MAC Consent: Indications for the procedure and potential complications of bleeding, perforation, reaction to medications and missed diagnosis were discussed with the patient and informed consent was obtained. Instrument: Olympus CF H 190 L variable stiffness adult colonoscope Monitoring: Vital signs and clinical assessment, intermittent blood pressure monitoring, continuous EKG monitoring, Pulse oximetry and Carbon Dioxide monitoring were done throughout the procedure. Please see anesthesia flowsheet. Colon withdrawl time was 28 minutes. Procedure: The patient was placed in the left lateral decubitis position and pre-procedure medications were administered. After a digital rectal examination of the ano-rectum, the video colonoscope was inserted into the rectum and advanced through the colon to the cecum. The colonoscope was slowly withdrawn in a retrograde panoramic fashion and the colon mucosa was carefully examined including a retroflexed view of the rectum. Findings and interventions are described below. Procedure Difficulty: without difficulty Findings: Terminal Ileum: Not evaluated Cecum: Normal Ascending Colon: A 3-4 mm diminutive polyp in the distal AC - removed with a cold biopsy Transverse Colon: Two 6-7 mm sessile polyps -removed with a cold snare Descending Colon: Moderate diverticulosis Sigmoid Colon: Moderate diverticulosis Rectum: A 2 - 3 mm sessile polyp - removed with a cold biopsy Ano-rectum: Small internal hemorrhoids Colon preparation: Good after some irrigation. [place] Bowel Preparation Scale Right colon; 2 Transverse colon: 2 Left colon; 2 (0 = Unprepared colon segment with mucosa not seen due to solid stool that cannot be cleared. 1 = Portion of mucosa of the colon segment seen, but other areas of the colon segment not well seen due to staining, residual stool and/or opaque liquid. 2 = Minor amount of residual staining, small fragments of stool and/or opaque liquid, but mucosa of colon segment seen well. 3 = Entire mucosa of colon segment seen well with no residual staining, small fragments of stool or opaque liquid) Impression and Post Procedure Diagnosis: Colonoscopy Findings: Four small polyps were removed Moderate diverticulosis seen in the left colon small hemorrhoids on retroflexed exam. Plan: I will send a letter with biopsy results Repeat Colonoscopy in 3-5 years if polyps are adenomatous and due to history of adenomatous colon polyps. Above findings were reviewed with the patient and relevant handouts were given and the discharge area.
[2023-08-24 14:22] VITALS: BP 128/73; PULSE 79; RESP 16; O2SAT 99
[2023-08-24 14:37] VITALS: BP 142/86; PULSE 78; RESP 16; TEMP 36.3; O2SAT 99
== END 2023-08-24 15:19 | disposition home or self-care (01) ==
PROVIDERS: PCP Internal Medicine; Visit Provider Internal Medicine Gastroenterology
PROC: 0DJD8ZZ Inspection of Lower Intestinal Tract, Via Natural or Artificial Opening Endoscopic (ICD-10-PCS; CPT 45378; principal; 2023-08-24 12:40)
DX: Z12.11 Encounter for screening for malignant neoplasm of colon (principal); K63.5 Polyp of colon; K62.1 Rectal polyp; K57.30 Diverticulosis of large intestine without perforation or abscess without bleeding; K64.8 Other hemorrhoids; Z86.010 Personal history of colon polyps; J45.909 Unspecified asthma, uncomplicated; Z98.0 Intestinal bypass and anastomosis status
CPT/HCPCS: 45385; 45380; 88305; J2704

== ENCOUNTER → 2023-08-24 11:15 | Outpatient (BNV) | payer BC, SELFPAY | PROVIDERS: PCP Internal Medicine; Visit Provider Internal Medicine Gastroenterology | DX: Z12.11 Encounter for screening for malignant neoplasm of colon (principal); Z86.010 Personal history of colon polyps; K62.1 Rectal polyp; K63.5 Polyp of colon; K57.90 Diverticulosis of intestine, part unspecified, without perforation or abscess without bleeding; K64.8 Other hemorrhoids | CPT/HCPCS: 45380; 45385 ==

== ENCOUNTER 2023-09-19 15:47 | Outpatient (AMB) | payer BC, SELFPAY ==
--- NOTE | 2023-09-19 15:58 | MHC.OFFWIV ---
Intake Vital Signs 09/19/23 15:59 Height 6 ft BP 128/72 Blood Pressure Location Rt brachial Position Sitting Pulse 82 Pulse Source Pulse Oximeter Temp 98.8 F Temp Source Oral Pulse Oximetry (%) 96 Intake Visit Reasons: EP Cough Intake Note: pt is here for cough Patient Tobacco Use Status: Never used Tobacco Allergies No Known Allergies [No Known Allergies*] Allergy (Verified 09/19/23 15:59) Do you need a note to return to daycare/school/sports/work: No HPI HPI Comments History of Present Illness Details 43-year-old male with a past medical history of asthma on an albuterol inhaler, Singulair but missing his asthma maintenance medication due to insurance issues is here today complaining of a worsening cough x5 days. He states he feels like there is glass in his chest. He tested at home for COVID and the test result was negative. He denies any fevers, head congestion, ear pain, sinus pain, nausea, vomiting or diarrhea. He states he has been in contact with quite a few people who have been diagnosed with walking pneumonia last week. He states when he uses his inhaler, he feels it opens his lungs up does not stop his cough. [facility] Medical History (Updated 09/19/23 @ 16:16 by Makenna Braun PA-C) Pectoralis muscle strain Asthma Elevated LFTs Asthma Hypogonadotropic hypogonadism Surgical History History of colonoscopy Family History Paternal Grandfather Colon cancer Mother No problems noted. Father Alive and well Social History Housing: House Alcohol intake: current Alcohol intake frequency: does not drink Alcohol type: beer Patient Tobacco Use Status: Never used Tobacco e-Cigarette/Vaping Use: Never Used Second Hand Smoke Exposure: No service: No Current occupational status: employed Cognitive needs: No Hearing needs: No Vision needs: No Review of Systems Const All systems reviewed & are unremarkable except as noted in HPI and below Physical Exam Vital Signs: Last Vital Signs Temp 98.8 F 09/19/23 15:59 Pulse 82 09/19/23 15:59 BP 128/72 09/19/23 15:59 Pulse Ox 96 09/19/23 15:59 Const General: cooperative, healthy appearing, comfortable and no acute distress Orientation/consciousness: patient oriented x3 Limitations: no limitations HEENT Head: Yes normal to inspection Ears: external ears normal and TM's normal bilaterally General nose exam: Normal external nose present, Normal nares present and No nasal discharge present Face and sinus: Yes normal facial exam and Yes sinuses nontender Mouth: Normal oral and palatal mucosa present and moist mucous membranes Throat: Yes tonsils normal, Yes uvula midline and Yes posterior oropharynx abnormal (Erythema) Eyes General: appearance normal, both eyes and all related structures Neck Neck: Yes normal visual inspection Resp Effort & Inspection: normal respiratory effort, able to speak in complete sentences, Actively coughing, no respiratory distress, not tachypneic, no tripod positioning and no use of accessory muscles Auscultation: clear to auscultation bilaterally Cardio Rate: regular rate Rhythm: regular rhythm Heart sounds: normal S1 and S2 Skin General skin exam: no rashes or lesions noted Neuro General: patient oriented x3 Extrem General: Yes normal to inspection and Yes no clubbing, cyanosis or edema Assessment & Plan Assessment & Plan (1) Cough: Code(s): R05.9 - Cough, unspecified Qualifiers: Cough type: acute Qualified Code(s): R05.1 - Acute cough Plan: Chest x-ray no acute cardiopulmonary process, send Z-Kevin with asthma history, advised will send a 2nd medication if warranted, lungs were clear so no steroids indicated. Advised follow-up with PCP if no resolution of cough in coming week. Plan see above Orders: Orders XR chest 2V Today R05.9 - Cough, unspecified Medications: New azithromycin take 500 mg today (day 1), then 250 mg for 4 days (days 2-5) PO 6 tabs 0RF Coding Level of Care Code Est Pt Level 4 (81582) Diagnoses Acute cough R05.1 Cough type: acute
[2023-09-19 15:59] VITALS: BP 128/72; PULSE 82; TEMP 37.1; O2SAT 96
== END 2023-09-19 16:30 | disposition home or self-care (01) ==
PROVIDERS: PCP Internal Medicine; Visit Provider Physician Assistant
DX: R05.1 Acute cough (principal)
CPT/HCPCS: 99213

== ENCOUNTER 2023-09-19 16:13 | Outpatient (REF) | payer BC, SELFPAY ==
--- NOTE | ~2023-09-19 | XR_ITS ---
EXAMINATION: XR CHEST 2 VIEW CLINICAL INFORMATION: Cough, unspecified COMPARISON: 09/21/2014 TECHNIQUE: PA and lateral views of the chest obtained. FINDINGS: The lungs are clear. There are no pleural effusions. The cardiomediastinal silhouette is normal. XR/XR chest 2V IMPRESSION: No acute cardiopulmonary disease.
== END 2023-09-19 16:14 | disposition home or self-care (01) ==
LOC: HO.HMGCX 16:13
PROVIDERS: Visit Provider Physician Assistant
DX: R05.9 Cough, unspecified (principal)
CPT/HCPCS: 71046

== ENCOUNTER 2023-10-10 14:31 | Outpatient (AMB) | payer BC, SELFPAY ==
[2023-10-10 14:35] VITALS: BP 140/86; PULSE 86; O2SAT 94; BMI 29.8
--- NOTE | 2023-10-10 14:35 | MHC.PC.OV ---
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 Accompanied by: Self / Same As Patient Allergies No Known Allergies [No Known Allergies*] Allergy (Verified 10/10/23 14:37) Medication List - Last Reconciled 10/12/23 by Wesly Presley MD albuterol sulfate 90 mcg/actuation 2 puffs inhalation QID PRN budesonide 90 mcg/actuation (Pulmicort Flexhaler) 1 inh inhalation BID codeine-guaifenesin 10-100 mg/5 mL 5 mL PO Q6H PRN ibuprofen 600 mg PO Q6H PRN montelukast (Singulair) 10 mg PO BEDTIME prednisone 20 mg PO BID prednisone 20 mg PO DAILY syringe with needle, safety As directed syringe with needle, safety (BD Integra Syringe) Once a week testosterone cypionate 70 mg (0.35 mL) IM QWEEK 30 days Tobacco use date assessed: 05/21/23 Dental Screening Dental Screen Date: 05/21/23 HPI Cough HPI Details cough for two weeks; so bad he has rib injury; unclear etiology [facility] Medical History (Updated 09/19/23 @ 16:16 by Makenna Braun PA-C) Pectoralis muscle strain Asthma Elevated LFTs Asthma Hypogonadotropic hypogonadism Surgical History History of colonoscopy Family History Paternal Grandfather Colon cancer Mother No problems noted. Father Alive and well Social History Housing: House Alcohol intake: current Alcohol intake frequency: does not drink Alcohol type: beer Patient Tobacco Use Status: Never used Tobacco e-Cigarette/Vaping Use: Never Used Second Hand Smoke Exposure: No service: No Current occupational status: employed Cognitive needs: No Hearing needs: No Vision needs: No Questionnaire Thrive Questionnaire Date Thrive assessed: 05/21/23 AMINATA-7 AMB Questionnaire AMINATA-7 Date AMINATA - 7 assessed: 02/12/24 Source: Developed by Drs. Hakan Pickens, Paris Anglin, Ashwin Galindo and colleagues, with an educational loki from [facility]. Review of Systems Const Denies chills, Denies headache(s) and Denies weight loss ENT Denies headache(s) Card Denies chest pain, Denies syncope and Denies irregular heart rhythm GI Denies abdominal pain, Denies change in stool character, Denies nausea and Denies vomiting Musc Denies deformity and Denies joint swelling Neuro Denies syncope and Denies headache(s) Physical exam (Primary Care) Vital Signs: Last Vital Signs Pulse 86 10/10/23 14:35 BP 140/86 H 10/10/23 14:35 Pulse Ox 94 10/10/23 14:35 Oxygen Delivery Method Room Air 10/10/23 14:35 BMI result Body Mass Index 29.8 Tobacco/Smoking Status: Tobacco use Status Tobacco use date assessed 05/21/23 10/10/23 14:40 Patient Tobacco Use Status Never used Tobacco 10/10/23 14:40 e-Cigarette/Vaping Use Never Used 10/10/23 14:40 Thrive Assessment: Date of Thrive Assessment Date Thrive assessed 05/21/23 10/10/23 14:40 Const General: cooperative, comfortable, no acute distress and alert Neck Neck: Yes no lymphadenopathy Thyroid: Thyroid normal Resp Effort & Inspection: normal respiratory effort Auscultation: clear to auscultation bilaterally Percussion: percussion normal Cardio Jugular venous distension: no JVD Palpation: normal PMI Rate: regular rate Rhythm: regular rhythm Heart sounds: S1 normal heart sound present and S2 normal heart sound present GI Inspection: Yes normal to inspection Palpation (GI): No hepatosplenomegaly present Skin General skin exam: no rashes or lesions noted Extrem General: Yes no clubbing, cyanosis or edema Assessment and Plan Assessment & Plan (1) Cough: Code(s): R05.9 - Cough, unspecified Qualifiers: Cough type: acute Qualified Code(s): R05.1 - Acute cough Plan: ref pulm; rx sent Orders: Referrals Pulmonology Referral R05.1 - Acute cough Medications: New prednisone 20 mg PO DAILY 7 tabs 0RF codeine-guaifenesin 10-100 mg/5 mL 5 mL PO Q6H PRN 118 mL 0RF allergy symptoms Coding Level of Care Code Est Pt Level 3 (49596) Diagnoses Acute cough R05.1 Cough type: acute
== END 2023-10-10 15:00 | disposition home or self-care (01) ==
PROVIDERS: PCP Internal Medicine; Visit Provider Internal Medicine
DX: R05.1 Acute cough (principal)
CPT/HCPCS: 99213

== ENCOUNTER 2023-12-04 10:32 | Outpatient (AMB) | payer BC, SELFPAY ==
--- NOTE | 2023-12-04 10:45 | A.OFFVIS_ITS ---
Vital Signs 3 12/04/23 10:52 Height 6 ft Weight 218 lb BMI 29.6 BP 149/79 H Blood Pressure Location Lt brachial Position Sitting Intake Visit Reasons: Right inguinal hernia Intake Note: Patient is seen in office for evaluation and treatment of a right inguinal hernia. 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 Accompanied by: Self / Same As Patient Allergies No Known Allergies [No Known Allergies*] Allergy (Verified 12/04/23 10:50) Medication List - Last Reconciled 12/04/23 by Radames Vega MD albuterol sulfate 90 mcg/actuation 2 puffs inhalation QID PRN budesonide 90 mcg/actuation (Pulmicort Flexhaler) 1 inh inhalation BID codeine-guaifenesin 10-100 mg/5 mL 5 mL PO Q6H PRN ibuprofen 600 mg PO Q6H PRN montelukast (Singulair) 10 mg PO BEDTIME syringe with needle, safety As directed syringe with needle, safety (BD Integra Syringe) Once a week testosterone cypionate 70 mg (0.35 mL) IM QWEEK 30 days HPI Comments Details: 43-year-old male patient presenting for evaluation of right groin pain. He reports a proximally one-month history of persistent coughing for an unknown reason resulting in strain of his lower abdominal muscles. He feels a persistent pain in the right groin but is unable to feel a lump. He is concerned about the development of a hernia in this location. Usually very active but now has pain with all activity. He denies nausea, vomiting, bowel changes or urinary changes. He denies a previous history of hernias or hernia surgery. [facility] Medical History Pectoralis muscle strain Asthma Elevated LFTs Asthma Hypogonadotropic hypogonadism Surgical History History of colonoscopy Family History Paternal Grandfather Colon cancer Mother No problems noted. Father Alive and well Social History Housing: House Alcohol intake: current Alcohol intake frequency: does not drink Alcohol type: beer Patient Tobacco Use Status: Never used Tobacco e-Cigarette/Vaping Use: Never Used Second Hand Smoke Exposure: No service: No Current occupational status: employed Cognitive needs: No Hearing needs: No Vision needs: No Review of Systems Const All systems reviewed & are unremarkable except as noted in HPI and below Physical Exam Const General: cooperative and no acute distress Nutritional Appearance: well nourished Orientation/consciousness: patient oriented x3 Limitations: no limitations HEENT Head: Yes normocephalic and Yes atraumatic Ears: hearing grossly normal bilaterally Resp Effort & Inspection: normal respiratory effort, no audible wheezes, no cough and no respiratory distress Cardio Jugular venous distension: no JVD GI Other: Soft, nondistended, no rebound, guarding or rigidity. Tender in the right groin at the internal ring. Examination with Valsalva maneuvers revealed no palpable hernia on either side. Inspection: Yes normal to inspection Abdomen image: 2 1. Area of maximal tenderness Skin Other: Warm, dry, no rash Neuro General: patient oriented x3 Extrem General: Yes no clubbing, cyanosis or edema Assessment & Plan Assessment & Plan (1) Right groin pain: Code(s): R10.31 - Right lower quadrant pain Category: Medical Plan 43-year-old male patient presenting with complaints of pain in the right groin which increases with coughing lifting. Examination today revealed no definite hernia in the right groin in his suggestive of a muscle strain. I recommended further evaluation with an ultrasound of the abdomen looking mainly at the right groin for an occult hernia. Should return following the ultrasound to review the results and discuss treatment options. Orders: Orders 2 US abdomen limited Today R10.31 - Right lower quadrant pain Coding Level of Care Code New Pt Level 4 (72368) Diagnoses Right groin pain R10.31
[2023-12-04 10:52] VITALS: BP 149/79; BMI 29.6
== END 2023-12-04 11:10 | disposition home or self-care (01) ==
PROVIDERS: PCP Internal Medicine; Visit Provider Surgery
DX: R10.31 Right lower quadrant pain (principal)
CPT/HCPCS: 99203

== ENCOUNTER → 2023-12-04 10:32 | Outpatient (BNVA) | payer BC, SELFPAY | PROVIDERS: PCP Internal Medicine; Visit Provider Surgery ==

== ENCOUNTER 2023-12-12 08:46 | Outpatient (REF) | payer BC, SELFPAY ==
--- NOTE | ~2023-12-12 | US_ITS ---
EXAMINATION: US RIGHT GROIN, LIMITED/FOLLOW UP CLINICAL INFORMATION: Right lower quadrant pain with question of occult hernia. COMPARISON: CT abdomen and pelvis 10/21/2014. TECHNIQUE: High frequency linear ultrasound transducer was used in the area of clinical concern. FINDINGS: In the area of clinical concern, no abnormality is seen. The area was examined both in the supine and upright position along with Valsalva maneuvers. No free fluid is seen. No hernia is identified. An abnormal mass is not seen. 2 small normal-appearing lymph nodes are present in the groin measuring 9 x 5 x 15 mm and 7 x 5 x 7 mm, similar to the prior 10/21/2014 CT scan. US/US pelvic limited IMPRESSION: No hernia or abnormal mass is seen in the area of clinical concern. Electronically signed by: Lewis Schreiber MD 12/22/2023 09:04 AM EDT
== END 2023-12-12 08:47 | disposition home or self-care (01) ==
LOC: HO.HMGCX 08:46
PROVIDERS: PCP Internal Medicine; Visit Provider Surgery
DX: R10.31 Right lower quadrant pain (principal)
CPT/HCPCS: 76857

== ENCOUNTER 2023-12-24 14:40 | Outpatient (AMB) | payer BC, SELFPAY ==
--- NOTE | 2023-12-24 15:04 | A.OFFVIS_ITS ---
Vital Signs 12/24/23 15:05 Height 6 ft Weight 219 lb 5.759 oz BMI 29.7 BP 124/78 Blood Pressure Location Lt brachial Position Sitting Pulse 78 Pulse Source Pulse Oximeter Pulse Oximetry (%) 96 Oxygen Delivery Method Room Air Intake Visit Reasons: acute cough Dental Assistant Required: No Allergies No Known Allergies [No Known Allergies*] Allergy (Verified 12/24/23 15:07) HPI Comments Details: The patient is here for pulmonary evaluation. The patient is a 43-year-old gentleman with known history of lifelong asthma presenting for evaluation. Apparently the patient has been evaluated previously by Pulmonary about 15 years ago. The patient was placed on Singulair in the that point a made a dramatic change in his life. His asthma symptoms improved. Was able to just be on a rescue inhaler for the mild intermittent asthma symptoms. However, several months ago the patient started with a worsening dry cough. Sometimes moderately to severe. The coughing spell sometimes cause muscle strength in his ribs. His coughing spells will last for minutes. Did not feel like his asthma. He was started on the Pulmicort Flexhaler. He is still not comfortable with the inhaler. He is not sure he is getting any medications. This is typical of this device that is not very use her friendly. As far as workup the patient has not had any pulmonary function studies. I did review a chest x-ray with him. No evidence of any acute disease although his gastric bubble is slightly medial bringing up the possibility of reflux disease. on further questioning the patient states that he tends to cough more while eating. He is not sure why the relation. Denies any significant heartburn or dyspepsia. Will be reasonable to further evaluate. Currently, will go ahead and start treating him for an upper airway cough syndrome. I do believe that based on his respiratory symptoms he still has persistent wheezing. He does need to start a maintenance inhaler with a long-acting beta agonist. The patient did admit to using the short-acting beta agonist around 5 times a day. Explained to him that this has potential adverse effects including tachycardia tremors muscle spasms among others. At this point will have to work on optimizing his respiratory therapy. Will treat him for postnasal drip and chronic rhinitis likely contributing to his cough. In addition to that the patient will benefit from a barium swallow to further address his symptoms of cough while eating. [facility] Medical History Pectoralis muscle strain Asthma Elevated LFTs Asthma Hypogonadotropic hypogonadism Surgical History History of colonoscopy Family History Paternal Grandfather Colon cancer Mother No problems noted. Father Alive and well Social History Housing: House Alcohol intake: current Alcohol intake frequency: does not drink Alcohol type: beer Patient Tobacco Use Status: Never used Tobacco e-Cigarette/Vaping Use: Never Used Second Hand Smoke Exposure: No service: No Current occupational status: employed Cognitive needs: No Hearing needs: No Vision needs: No Review of Systems Const Denies fever(s) Eyes Reports no additional complaints ENT Reports dysphagia and Reports post nasal drip Card Denies chest pain Resp Reports cough and Reports wheezing GI Reports dysphagia Musc Reports no additional complaints Skin/Breast Denies rash Neuro Reports no additional complaints Endo Reports no additional complaints Aller/Immun Reports wheezing Physical Exam Vital Signs: Last Vital Signs Pulse 78 12/24/23 15:05 BP 124/78 12/24/23 15:05 Pulse Ox 96 12/24/23 15:05 Oxygen Delivery Method Room Air 12/24/23 15:05 BMI result Body Mass Index 29.7 Const General: healthy appearing and comfortable HEENT General nose exam: Abnormal mucous membranes and turbinates present erythematous and Nasal discharge present clear Throat: Yes postnasal drainage and Yes cobblestoning Neck Neck: Yes supple Chest Chest palpation & inspection: normal inspection of the chest Resp Effort & Inspection: normal respiratory effort and prolonged expiratory phase Auscultation: wheezes and diminished lung sounds Cardio Heart sounds: S1 normal heart sound present and S2 normal heart sound present GI Palpation (GI): Soft to palpation Skin General skin exam: no rashes or lesions noted Extrem General: Yes no clubbing, cyanosis or edema Assessment & Plan Assessment & Plan (1) Cough: Code(s): R05.9 - Cough, unspecified Category: Medical Qualifiers: Cough type: acute Qualified Code(s): R05.1 - Acute cough (2) Asthma: Code(s): J45.909 - Unspecified asthma, uncomplicated Category: Medical Qualifiers: Asthma severity: moderate Asthma persistence: persistent Asthma complication type: uncomplicated Qualified Code(s): J45.40 - Moderate persistent asthma, uncomplicated Plan stop Pulmocort start Symbicort KEITH as needed continue singulair consider bloodwork and allergy testing barium swallow PFTs start fluticasone nasal spray benzonates as needed for cough F/U 6-8 weeks Orders: Orders FL barium swallow Today K21.9 - Gastro-esophageal reflux disease without esophagitis ECG 12 lead EKG Today J44.9 - Chronic obstructive pulmonary disease, unspecified PFT pulmonary function test Today J45.40 - Moderate persistent asthma, uncomplicated Medications: New budesonide-formoterol 160-4.5 mcg/actuation 2 puffs inhalation BID 30 days 10.2 grams 11RF J44.89 - Other specified chronic obstructive pulmonary disease benzonatate 200 mg PO BID 30 days PRN 60 caps 5RF cough fluticasone propionate 50 mcg/actuation 2 sprays intranasal DAILY 30 days 15.8 mL 11RF J31.0 - Chronic rhinitis Coding Level of Care Code New Pt Level 4 (47465) Diagnoses Acute cough R05.1 Cough type: acute Moderate persistent asthma without complication J45.40 Asthma severity: moderate Asthma persistence: persistent Asthma complication type: uncomplicated Time Spent (min) 40
[2023-12-24 15:05] VITALS: BP 124/78; PULSE 78; O2SAT 96; BMI 29.7
== END 2023-12-24 15:37 | disposition home or self-care (01) ==
PROVIDERS: PCP Internal Medicine; Referring Provider Internal Medicine; Visit Provider Hospitalist
DX: R05.1 Acute cough (principal); J45.40 Moderate persistent asthma, uncomplicated
CPT/HCPCS: 99204

== ENCOUNTER → 2023-12-24 14:40 | Outpatient (BNVA) | payer BC, SELFPAY | PROVIDERS: PCP Internal Medicine; Referring Provider Internal Medicine; Visit Provider Hospitalist ==

== ENCOUNTER 2024-02-08 14:43 | Outpatient (AMB) | payer BC, SELFPAY ==
[2024-02-08 14:46] VITALS: BP 120/82; PULSE 91; O2SAT 95; BMI 29.3
--- NOTE | 2024-02-08 14:46 | MHC.OFFVIS ---
Vital Signs 02/08/24 14:46 Height 6 ft Weight 216 lb 0.848 oz BMI 29.3 BP 120/82 Blood Pressure Location Lt brachial Position Sitting Pulse 91 Pulse Source Pulse Oximeter Pulse Oximetry (%) 95 Oxygen Delivery Method Room Air Intake Visit Reasons: acute cough Rehab Liaison Required: No Allergies No Known Allergies [No Known Allergies*] Allergy (Verified 02/08/24 14:50) HPI Comments Details: The patient is a 43-year-old gentleman with known history of lifelong asthma presenting for evaluation. Apparently the patient has been evaluated previously by Pulmonary about 15 years ago. The patient was placed on Singulair in the that point a made a dramatic change in his life. His asthma symptoms improved. Was able to just be on a rescue inhaler for the mild intermittent asthma symptoms. However, several months ago the patient started with a worsening dry cough. Sometimes moderately to severe. The coughing spell sometimes cause muscle strength in his ribs. His coughing spells will last for minutes. Did not feel like his asthma. He was started on the Pulmicort Flexhaler. He is still not comfortable with the inhaler. He is not sure he is getting any medications. This is typical of this device that is not very use her friendly. As far as workup the patient has not had any pulmonary function studies. I did review a chest x-ray with him. No evidence of any acute disease although his gastric bubble is slightly medial bringing up the possibility of reflux disease. on further questioning the patient states that he tends to cough more while eating. He is not sure why the relation. Denies any significant heartburn or dyspepsia. Will be reasonable to further evaluate. Currently, will go ahead and start treating him for an upper airway cough syndrome. I do believe that based on his respiratory symptoms he still has persistent wheezing. He does need to start a maintenance inhaler with a long-acting beta agonist. The patient did admit to using the short-acting beta agonist around 5 times a day. Explained to him that this has potential adverse effects including tachycardia tremors muscle spasms among others. At this point will have to work on optimizing his respiratory therapy. Will treat him for postnasal drip and chronic rhinitis likely contributing to his cough. In addition to that the patient will benefit from a barium swallow to further address his symptoms of cough while eating. 02/08/2024 the patient is here for a pulmonary follow-up visit. Overall he is feeling better. We were able to get him Symbicort. However, he did start Breo about a month ago and he is starting to already see significant improvement. The cough is significantly decreased. He does have a rescue inhaler but he has not required it. He needs to undergo pulmonary function studies but he has not done so as of yet. In addition, if his symptoms worsen we can always consider getting blood work to see if about biologic therapies. He would benefit from biologic therapy if his symptoms do not improve or worsen. [facility] Medical History Pectoralis muscle strain Asthma Elevated LFTs Asthma Hypogonadotropic hypogonadism Surgical History History of colonoscopy Family History Paternal Grandfather Colon cancer Mother No problems noted. Father Alive and well Social History (Reviewed 02/08/24 @ 14:52 by Josefina Mayen [facility]) Housing: House Alcohol intake: current Alcohol intake frequency: does not drink Alcohol type: beer Patient Tobacco Use Status: Never used Tobacco e-Cigarette/Vaping Use: Never Used Second Hand Smoke Exposure: No service: No Current occupational status: employed Cognitive needs: No Hearing needs: No Vision needs: No Review of Systems Const Denies fever(s) Eyes Reports no additional complaints ENT Reports dysphagia and Reports post nasal drip Card Denies chest pain Resp Reports cough and Denies wheezing GI Reports dysphagia Musc Reports no additional complaints Skin/Breast Denies rash Neuro Reports no additional complaints Endo Reports no additional complaints Aller/Immun Denies wheezing Physical Exam Vital Signs: Last Vital Signs Pulse 91 02/08/24 14:46 BP 120/82 02/08/24 14:46 Pulse Ox 95 02/08/24 14:46 Oxygen Delivery Method Room Air 02/08/24 14:46 BMI result Body Mass Index 29.3 Const General: healthy appearing and comfortable HEENT General nose exam: Abnormal mucous membranes and turbinates present erythematous and Nasal discharge present clear Throat: Yes postnasal drainage and Yes cobblestoning Neck Neck: Yes supple Chest Chest palpation & inspection: normal inspection of the chest Resp Effort & Inspection: normal respiratory effort Auscultation: no wheezes and diminished lung sounds Cardio Heart sounds: S1 normal heart sound present and S2 normal heart sound present GI Palpation (GI): Soft to palpation Skin General skin exam: no rashes or lesions noted Extrem General: Yes no clubbing, cyanosis or edema Assessment & Plan Assessment & Plan (1) Cough: Code(s): R05.9 - Cough, unspecified Category: Medical Qualifiers: Cough type: acute Qualified Code(s): R05.1 - Acute cough (2) Asthma: Code(s): J45.909 - Unspecified asthma, uncomplicated Category: Medical Qualifiers: Asthma complication type: uncomplicated Asthma persistence: persistent Asthma severity: moderate Qualified Code(s): J45.40 - Moderate persistent asthma, uncomplicated Plan continue Breo KEITH as needed continue singulair consider bloodwork and allergy testing consider Biologc therapy if worsens barium swallow PFTs fluticasone nasal spray benzonates as needed for cough F/U 4-6 months Coding Level of Care Code Est Pt Level 4 (88210) Diagnoses Acute cough R05.1 Cough type: acute Moderate persistent asthma without complication J45.40 Asthma complication type: uncomplicated Asthma persistence: persistent Asthma severity: moderate Time Spent (min) 17
== END 2024-02-08 15:21 | disposition home or self-care (01) ==
LOC: HO.HPS 14:43
PROVIDERS: PCP Internal Medicine; Visit Provider Hospitalist
DX: R05.1 Acute cough (principal); J45.40 Moderate persistent asthma, uncomplicated
CPT/HCPCS: 99214

== ENCOUNTER → 2024-02-08 14:43 | Outpatient (BNVA) | payer BC, SELFPAY | PROVIDERS: PCP Internal Medicine; Visit Provider Hospitalist ==

== ENCOUNTER 2024-02-19 10:39 | Outpatient (REF) | payer BC, SELFPAY ==
--- NOTE | 2024-02-19 10:42 | PFT_ITS ---
Flows: FEV1: 119 % of predicted at 5.30 L FVC: 122 % of predicted at 6.80 L FEV1/FVC: 78 % Bronchodilator response: Patient declined bronchodilator testing Volumes: Total lung capacity: 112 % of predicted at 8.56 L Residual volume: 101 % of predicted at 1.76 L Slow vital capacity: 115 % of predicted at 6.80 L Expiratory reserve volume: 80 % of predicted at 1.39 L Diffusion capacity: Normal Impression: No obstructive or restrictive ventilatory defects. Patient declined bronchodilator testing. MTDD
== END 2024-02-19 10:40 | disposition home or self-care (01) ==
LOC: HO.RESP 10:39
PROVIDERS: PCP Internal Medicine; Visit Provider Hospitalist
DX: J45.40 Moderate persistent asthma, uncomplicated (principal)
CPT/HCPCS: 94010; 94640; 94727; 94729

== ENCOUNTER → 2024-02-19 10:42 | Outpatient (BNV) | payer BC, SELFPAY | PROVIDERS: PCP Internal Medicine; Visit Provider Internal Medicine Pulmonary Disease | DX: J45.40 Moderate persistent asthma, uncomplicated (principal) | CPT/HCPCS: 94060; 94727; 94729 ==

== ENCOUNTER 2024-03-17 08:59 | Outpatient (REF) | payer BC, SELFPAY ==
--- NOTE | ~2024-03-17 | FL_ITS ---
EXAMINATION: XR FLUOROSCOPY UPPER GI WITH AIR CLINICAL INFORMATION: Cough. Concern for reflux. COMPARISON: None TECHNIQUE: Fluoroscopic air contrast upper GI examination was performed utilizing standard techniques with thin and thick barium and effervescent granules. Numerous spot images were obtained. FINDINGS: Lateral cine images of the oropharynx and hypopharynx demonstrate normal swallow mechanism with normal epiglottic inversion and soft palate elevation. No tracheal penetration, glottic or subglottic aspiration identified. No nasopharyngeal reflux present. Hypopharyngeal structures appear normal without evidence of mass or diverticulum. There was no significant cricopharyngeal achalasia. Dual and single contrast images of the esophagus demonstrate normal caliber, contour, and mucosal pattern. No evidence of stricture, mass, or ulcerations identified. Esophageal peristalsis was normal. A small type I hiatal hernia is present. No significant gastroesophageal reflux was seen during the course of the examination and on reflux views. Dual contrast and single contrast images of the stomach demonstrated a normal contour. The gastric rugal folds have a thickened appearance, suggestive of gastritis. No masses or ulcerations are seen. Contrast freely passed into the gastric antrum and duodenal bulb without delay. Single and air-contrast images of the duodenal bulb demonstrate no abnormality. The duodenal sweep has a normal appearance, course, and mucosal fold appearance. There is a moderate sized diverticulum present in the distal second/proximal third portion of the duodenum. The imaged proximal jejunum has a normal fold pattern and caliber. FLUOROSCOPY TIME: 3 minutes 15 seconds Number of Spot Images: 11 Number of Cine: 13 DOSE AREA PRODUCT: [id number] uGy-m2 (microgray-meter squared) FL/FL barium swallow with air IMPRESSION: 1. Small type I hiatal hernia. No gastroesophageal reflux observed. 2. Thickened appearance of the gastric rugal folds, suggestive of gastritis. 3. Moderate-sized diverticulum present in the stomach distal second/proximal third segment of the duodenum. This procedure was performed by Aploinar Duke PA-C, and supervised by Dr. Stewart Electronically signed by: Andrzej Stewart MD 03/18/2024 02:49 PM [facility]
== END 2024-03-17 09:00 | disposition home or self-care (01) ==
LOC: HO.XRAY 08:59
PROVIDERS: PCP Internal Medicine; Visit Provider Hospitalist
DX: K21.9 Gastro-esophageal reflux disease without esophagitis (principal)
CPT/HCPCS: 74221

== ENCOUNTER → 2024-03-17 09:01 | Outpatient (BNV) | payer BC, SELFPAY | PROVIDERS: PCP Internal Medicine; Visit Provider Physician Assistant Surgical | DX: K21.9 Gastro-esophageal reflux disease without esophagitis (principal); R05.9 Cough, unspecified | CPT/HCPCS: 74246 ==

== ENCOUNTER → 2024-05-14 14:29 | Outpatient (BNVA) | payer BC, SELFPAY | PROVIDERS: PCP Internal Medicine ==

== ENCOUNTER 2024-05-22 12:49 | Outpatient (AMB) | payer BC, SELFPAY ==
[2024-05-22 12:54] VITALS: BP 128/84; PULSE 86; O2SAT 98; BMI 28.3
--- NOTE | 2024-05-22 12:54 | MHC.PC.OV ---
Vital Signs 05/22/24 12:54 Height 6 ft Weight 209 lb BMI 28.3 BP 128/84 Blood Pressure Location Lt brachial Position Sitting Pulse 86 Pulse Source Pulse Oximeter Pulse Oximetry (%) 98 Oxygen Delivery Method Room Air Intake Visit Reasons: Annual Exam Intake Note: Patient is here today for a physical. 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 Accompanied by: Self / Same As Patient Allergies No Known Allergies [No Known Allergies*] Allergy (Verified 05/22/24 12:57) Tobacco use date assessed: 05/22/24 Dental Screening Dental Screen Date: 05/22/24 Did you have a dental visit in the last 12 months?: Yes Did you have a dental problem in the last 6 months where you did not have access to dental care?: No Was dental information given to patient?: Patient has dentist HPI Annual Exam HPI Details low testosterone on rx; chronic cough PFSH Medical History Pectoralis muscle strain Asthma Elevated LFTs Asthma Hypogonadotropic hypogonadism Surgical History History of colonoscopy Family History Paternal Grandfather Colon cancer Mother No problems noted. Father Alive and well Social History Housing: House Alcohol intake: current Alcohol intake frequency: does not drink Alcohol type: beer Patient Tobacco Use Status: Never used Tobacco e-Cigarette/Vaping Use: Never Used Second Hand Smoke Exposure: No service: No Current occupational status: employed Cognitive needs: No Hearing needs: No Vision needs: No Questionnaire PHQ-9 Over the last 2 weeks, how often have you been bothered by any of the following problems? 1. Little interest or pleasure in doing things: not at all 2. Feeling down, depressed, or hopeless: not at all 3. Trouble falling or staying asleep, or sleeping too much: not at all 4. Feeling tired or having little energy: not at all 5. Poor appetite or overeating: not at all 6. Feeling bad about yourself - or that you are a failure or have let yourself or your family down: not at all 7. Trouble concentrating on things, such as reading the newspaper or watching television: not at all 8. Moving or speaking so slowly that other people could have noticed. Or the opposite - being so fidgety or restless that you have been moving around a lot more than usual: not at all 9. Thoughts that you would be better off or of hurting yourself in some way: not at all Total score: 0 Depression Screening Interpretation: Negative Depression Screening Done: Yes 96616 - PHQ-9 Billing: Yes Source: Developed by Drs. Hakan Pickens, Paris Anglin, Ashwin Galindo and colleagues, with an educational loki from [employer]. Thrive Questionnaire Date Thrive assessed: 05/22/24 I am a: Patient What is your living situation today?: I have a steady place to live Within the past 12 months, did the food you bought not last and you didn't have the money to get more?: Never true Within the past 12 months, did you worry whether your food would run out before you got money to buy more?: Never true Do you have trouble paying for medicines?: No Do you have trouble getting transportation to medical appointments?: No Do you have trouble paying your heating and electricity bill?: No Do you have trouble taking care of your child, family member or friend?: No Do you have trouble with day-to-day activities such as bathing, preparing meals, shopping, managing finances, etc.?: No Are you currently unemployed and looking for a job?: No Are you interested in more education?: No Please select the resources that you would like help with: None Currently or been in a relationship where the following occur: I choose not to answer THRIVE Score: 0 AUDIT C Alcohol Use Questionnaire (AUDIT-C) 1. How often do you have a drink containing alcohol?: 2-3 times a week 2. How many drinks containing alcohol do you have on a typical day when you are drinking?: 5 or 6 3. How often do you have six or more drinks on one occasion?: Weekly Total Score: 8 AMINATA-7 AMB Questionnaire AMINATA-7 Date AMINATA - 7 assessed: 05/22/24 Feeling nervous, anxious, or on edge: 0 = Not at all Not being able to stop or control worryin = Not at all Worrying too much about different things: 0 = Not at all Trouble relaxin = Nearly every day Being so restless that it is hard to sit still: 3 = Nearly every day Becoming easily annoyed or irritable: 0 = Not at all Feeling afraid as if something awful might happen: 0 = Not at all Total AMINATA-7 score (0-4 normal; 5-9 mild; 10-14 moderate; 15-21 severe): 6 Source: Developed by Drs. Hakan Pickens, Paris Anglin, Ashwin Galindo and colleagues, with an educational loki from [employer]. AMINATA-7 Assessment Billing AMINATA-7 Assessment Tool: AMINATA-7 Assessment 78911 Review of Systems Const Denies chills, Denies fatigue, Denies headache(s) and Denies weight loss Eyes Denies change in vision, Denies diplopia and Denies eye pain ENT Denies vertigo, Denies dizziness, Denies headache(s) and Denies nasal discharge Card Denies chest pain, Denies rapid heart rate and Denies dyspnea on exertion Resp Denies chest congestion, Denies cough, Denies pain with cough and Denies dyspnea on exertion GI Denies abdominal pain, Denies hematochezia and Denies change in bowel habits Musc Denies myalgias, Denies arthralgias and Denies joint swelling Skin/Breast Denies lesions and Denies unusual bruising Neuro Denies vertigo, Denies dizziness, Denies headache(s) and Denies focal weakness Endo Denies fatigue Physical exam (Primary Care) Vital Signs: Last Vital Signs Pulse 86 05/22/24 12:54 BP 128/84 05/22/24 12:54 Pulse Ox 98 05/22/24 12:54 Oxygen Delivery Method Room Air 05/22/24 12:54 BMI result Body Mass Index 28.3 Tobacco/Smoking Status: Tobacco use Status Tobacco use date assessed 05/22/24 05/22/24 12:59 Patient Tobacco Use Status Never used Tobacco 05/22/24 12:59 e-Cigarette/Vaping Use Never Used 05/22/24 12:59 PHQ-9: PHQ-9 Score PHQ-9: Total score 0 05/22/24 12:59 Depression Screening Interpretation: Negative Thrive Assessment: Date of Thrive Assessment Date Thrive assessed 05/22/24 05/22/24 12:59 Currently or been in a relationship where the following occur: I choose not to answer Const General: cooperative, healthy appearing and no acute distress Orientation/consciousness: oriented to person, oriented to place and oriented to time HENMT Head: Yes normal to inspection, Yes normocephalic and Yes atraumatic Mouth: Normal oral and palatal mucosa present and tongue normal Throat: Yes posterior oropharynx normal and Yes uvula midline Eyes General: appearance normal, both eyes and all related structures Neck Neck: Yes normal visual inspection, Yes full ROM and Yes no lymphadenopathy Thyroid: Thyroid normal Carotids: normal carotid upstroke Chest Chest palpation & inspection: normal inspection of the chest Resp Effort & Inspection: normal respiratory effort and able to speak in complete sentences Auscultation: clear to auscultation bilaterally Cardio Jugular venous distension: no JVD Palpation: normal PMI Rate: regular rate Rhythm: regular rhythm Heart sounds: S1 normal heart sound present and S2 normal heart sound present GI Inspection: Yes normal to inspection Palpation (GI): Soft to palpation and No hepatosplenomegaly present Auscultation: normal bowel sounds General: Yes no CVA tenderness Back/Spine/Pelvis Back: no CVA tenderness Skin General skin exam: no rashes or lesions noted Neuro General: oriented to person, oriented to place and oriented to time Extrem General: Yes normal to inspection and Yes full ROM Coding Level of Care Code Est Pt Prev Care 40-64y(03715) Diagnoses Physical exam Z00.00 Acute cough R05.1 Cough type: acute Additional Codes AMINATA-7 Assessment Billing - AMINATA-7 Assessment Tool: AMINATA-7 Assessment [id number] ([id number]) PHQ-9 - 30196 - PHQ-9 Billing: Yes ([id number]) Assessment & Plan Assessment & Plan (1) Physical exam: Code(s): Z00.00 - Encounter for general adult medical examination without abnormal findings Category: Medical Plan: stable; do labs (2) Cough: Code(s): R05.9 - Cough, unspecified Category: Medical Qualifiers: Cough type: acute Qualified Code(s): R05.1 - Acute cough Plan: consider gerd; rx sent Orders: Orders Lipid Panel 05/22/24 Z13.220 - Encounter for screening for lipoid disorders Complete Blood Count Auto Diff 05/22/24 Z13.0 - Encounter for screening for diseases of the blood and blood-forming organs and certain disorders involving the immune mechanism Thyroid Stimulating Hormone 05/22/24 Z13.29 - Encounter for screening for other suspected endocrine disorder Comprehensive [place]. Panel Fast 05/22/24 Z13.9 - Encounter for screening, unspecified Medications: New omeprazole 20 mg PO DAILY 30 tabs 0RF
== END 2024-05-22 13:25 | disposition home or self-care (01) ==
PROVIDERS: PCP Internal Medicine; Visit Provider Internal Medicine
DX: Z00.00 Encounter for general adult medical examination without abnormal findings (principal); R05.1 Acute cough

== ENCOUNTER → 2024-05-22 12:49 | Outpatient (BNVA) | payer BC, SELFPAY | PROVIDERS: PCP Internal Medicine; Visit Provider Internal Medicine | DX: Z00.01 Encounter for general adult medical examination with abnormal findings (principal); R05.1 Acute cough | CPT/HCPCS: 96127 ==

== ENCOUNTER 2024-07-03 11:07 | Outpatient (AMB) | payer BC, SELFPAY ==
--- NOTE | 2024-07-03 11:10 | A.OFFVIS_ITS ---
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 Apparently the patient has been evaluated previously by Pulmonary about 15 years ago. The patient was placed on Singulair in the that point a made a dramatic change in his life. His asthma symptoms improved. Was able to just be on a rescue inhaler for the mild intermittent asthma symptoms. However, several months ago the patient started with a worsening dry cough. Sometimes moderately to severe. The coughing spell sometimes cause muscle strength in his ribs. His coughing spells will last for minutes. Did not feel like his asthma. He was started on the Pulmicort Flexhaler. He is still not comfortable with the inhaler. He is not sure he is getting any medications. This is typical of this device that is not very use her friendly. As far as workup the patient has not had any pulmonary function studies. I did review a chest x-ray with him. No evidence of any acute disease although his gastric bubble is slightly medial bringing up the possibility of reflux disease. on further questioning the patient states that he tends to cough more while eating. He is not sure why the relation. Denies any significant heartburn or dyspepsia. Will be reasonable to further evaluate. Currently, will go ahead and start treating him for an upper airway cough syndrome. I do believe that based on his respiratory symptoms he still has persistent wheezing. He does need to start a maintenance inhaler with a long-acting beta agonist. The patient did admit to using the short-acting beta agonist around 5 times a day. Explained to him that this has potential adverse effects including tachycardia tremors muscle spasms among others. At this point will have to work on optimizing his respiratory therapy. Will treat him for postnasal drip and chronic rhinitis likely contributing to his cough. In addition to that the patient will benefit from a barium swallow to further address his symptoms of cough while eating. 02/08/2024 the patient is here for a pulmonary follow-up visit. Overall he is feeling better. We were able to get him Symbicort. However, he did start Breo about a month ago and he is starting to already see significant improvement. The cough is significantly decreased. He does have a rescue inhaler but he has not required it. He needs to undergo pulmonary function studies but he has not done so as of yet. In addition, if his symptoms worsen we can always consider getting blood work to see if about biologic therapies. He would benefit from biologic therapy if his symptoms do not improve or worsen. 07/03/2024 the patient is here for a pulmonary follow-up visit. Overall the patient is feeling a lot better from a respiratory status. He continues on the Breo and also continues on his Singulair. His cough is significantly improved. He does still have his nasal congestion. He stopped using the fluticasone but he can go back to use it for period of time if need be. The patient also had a barium swallow with that we did review. The patient has a small hiatal hernia. In addition to that has significant diverticuli of both the stomach and the duodenum. He has been seen by GI in the past therefore I did refer him back to GI to look at that area. In the meantime the patient is doing well from a respiratory status. He will follow-up in a year's time. [facility] Medical History (Updated 07/03/24 @ 11:47 by Hossein Nunez MD) Hiatal hernia Diverticulum of stomach Diverticulum of duodenum Pectoralis muscle strain Asthma Elevated LFTs Asthma Hypogonadotropic hypogonadism Surgical History History of colonoscopy Family History Paternal Grandfather Colon cancer Mother No problems noted. Father Alive and well Social History Housing: House Alcohol intake: current Alcohol intake frequency: does not drink Alcohol type: beer Patient Tobacco Use Status: Never used Tobacco e-Cigarette/Vaping Use: Never Used Second Hand Smoke Exposure: No service: No Current occupational status: employed Cognitive needs: No Hearing needs: No Vision needs: No Review of Systems Const Denies fever(s) Eyes Reports no additional complaints ENT Reports dysphagia and Reports post nasal drip Card Denies chest pain Resp Reports cough and Denies wheezing GI Reports dysphagia Musc Reports no additional complaints Skin/Breast Denies rash Neuro Reports no additional complaints Endo Reports no additional complaints Aller/Immun Denies wheezing Physical Exam Vital Signs: Last Vital Signs Pulse 81 07/03/24 11:11 BP 110/72 07/03/24 11:11 Pulse Ox 99 07/03/24 11:11 Oxygen Delivery Method Room Air 07/03/24 11:11 BMI result Body Mass Index 28.1 Const General: healthy appearing and comfortable HEENT General nose exam: Abnormal mucous membranes and turbinates present erythematous and Nasal discharge present clear Throat: Yes postnasal drainage and Yes cobblestoning Neck Neck: Yes supple Chest Chest palpation & inspection: normal inspection of the chest Resp Effort & Inspection: normal respiratory effort Auscultation: no wheezes and diminished lung sounds Cardio Heart sounds: S1 normal heart sound present and S2 normal heart sound present GI Palpation (GI): Soft to palpation Skin General skin exam: no rashes or lesions noted Extrem General: Yes no clubbing, cyanosis or edema Assessment & Plan Assessment & Plan (1) Cough: Code(s): R05.9 - Cough, unspecified Category: Medical Qualifiers: Cough type: acute Qualified Code(s): R05.1 - Acute cough (2) Asthma: Code(s): J45.909 - Unspecified asthma, uncomplicated Category: Medical Qualifiers: Asthma complication type: uncomplicated Asthma persistence: persistent Asthma severity: moderate Qualified Code(s): J45.40 - Moderate persistent asthma, uncomplicated (3) Diverticulum of duodenum: Code(s): K57.10 - Diverticulosis of small intestine without perforation or abscess without bleeding Category: Medical (4) Diverticulum of stomach: Code(s): K31.4 - Gastric diverticulum Category: Medical (5) Hiatal hernia: Code(s): K44.9 - Diaphragmatic hernia without obstruction or gangrene Category: Medical Plan continue Breo KEITH as needed continue singulair consider bloodwork and allergy testing consider Biologc therapy if worsens F/U with GI fluticasone nasal spray benzonates as needed for cough F/U 12 months Orders: Referrals Gastroenterology Referral K31.4 - Gastric diverticulum, K44.9 - Diaphragmatic hernia without obstruction or gangrene, K57.10 - Diverticulosis of small intestine without perforation or abscess without bleeding Coding Level of Care Code Est Pt Level 4 (13994) Diagnoses Acute cough R05.1 Cough type: acute Moderate persistent asthma without complication J45.40 Asthma complication type: uncomplicated Asthma persistence: persistent Asthma severity: moderate Diverticulum of duodenum K57.10 Diverticulum of stomach K31.4 Hiatal hernia K44.9 Time Spent (min) 18
[2024-07-03 11:11] VITALS: BP 110/72; PULSE 81; O2SAT 99; BMI 28.1
== END 2024-07-03 11:39 | disposition home or self-care (01) ==
LOC: HO.HPS 11:08
PROVIDERS: PCP Internal Medicine; Visit Provider Hospitalist
DX: R05.1 Acute cough (principal); J45.40 Moderate persistent asthma, uncomplicated; K57.10 Diverticulosis of small intestine without perforation or abscess without bleeding; K31.4 Gastric diverticulum; K44.9 Diaphragmatic hernia without obstruction or gangrene
CPT/HCPCS: 99214

== ENCOUNTER 2024-07-08 13:53 | Outpatient (AMB) | payer BC, SELFPAY ==
--- NOTE | 2024-07-08 14:00 | MHC.OFFVIS ---
Vital Signs 07/08/24 14:04 Height 6 ft Weight 210 lb BMI 28.5 BP 110/57 L Blood Pressure Location Lt brachial Position Sitting Pulse 77 Pulse Oximetry (%) 96 Oxygen Delivery Method Room Air Intake Visit Reasons: Barium Swallow results Intake Note: Patient follow up for BS result Patient denies any GI issues for today visit. Prepared Foods Associate Required: No Accompanied by: Self / Same As Patient Allergies No Known Allergies [No Known Allergies*] Allergy (Verified 07/08/24 14:00) Medication List - Last Reconciled 07/08/24 by Johanna Clay MD albuterol sulfate 90 mcg/actuation 2 puffs inhalation QID PRN fluticasone furoate-vilanterol 200-25 mcg/dose (Breo Ellipta) 1 inh inhalation DAILY 30 days fluticasone propionate 50 mcg/actuation 2 sprays intranasal DAILY 30 days ibuprofen 600 mg PO Q6H PRN montelukast (Singulair) 10 mg PO BEDTIME omeprazole 20 mg PO DAILY syringe with needle, safety As directed syringe with needle, safety (BD Integra Syringe) Once a week testosterone cypionate 70 mg (0.35 mL) IM QWEEK 30 days HPI HPI Barium Swallow results: Details: GI CLINIC VISIT FOR THIS 43-YEAR-OLD MALE FOR EVALUATION OF ABNORMAL BARIUM SWALLOW. CHRONIC ILLNESSES: Rotator cuff impingement, asthma, hypogonadotropic hypogonadism. TODAY'S VISIT On 07/03/24 @ 11:33 Hossein Nunez Wrote To Johanna Clay please see Barium swallow with divertuculum of the stomach and duodenum. Also small HH and symtomatic. Had uncontrollable coughing for months Coughing has gradually subsided. Has chronic pain left of the umblicus which started when he had frequent coughing - since 8-9 months Pain is constant, stabbing pain and 3/10 in intensity (was worse before). Notes increased pain when he leans back No change with abd pain with eating Denies any recent change in BM - has a BM 5 times a day. Takes a high fibre diet [place] a painful lump in the left testicle since 07/04/24 and has been trying to contact his PCP to order an US. PAST VISITS: Has been avoiding ibuprofen over the past month. Took theraflu with acetaminophen - twice a week for a cold. Intermittent elevation of LFTs since 02/2011. Hep serologies were negative in the past. Pt denies past history of jaundice or known family history of liver disease. Notes some fatigue, denies jaundice. Genetic testing for Hereditary Hemochromatosis was negative. Denies dysphagia, heartburn, nausea or vomiting, change in appetite or weight. Patient denies change in bowel habits, black stools or rectal bleeding He was taking supplements which he discontinued several weeks ago. Takes Ibuprofen 250 mg, three tab 5 times a week. Sister recently diagnosed with breast cancer at age 40 yrs. Paternal cousin diagnosed with testicular cancer in his 30's. PAST GI HISTORY BY REVIEW OF MEDICAL RECORDS: Last seen on 03/19/2019: Assessments 1. Elevated LFTs - R94.5 (Primary) 2. Family history of colon cancer - Z80.0 38 year old overweight male with rotator cuff impingement, asthma, hypogonadotropic hypogonadism seen for evaluation of intermittent elevation of LFTs since 2010. Hepatitis B and C serologies were negative. He takes 3-4 drinks on weekends and a few drinks during the week. Pattern of LFT elevation is not suggestive of ETOH related hepatitis since ALT > AST. Elevated LFTs aremost likely due to steatohepatitis. Other less likely possiblities include autoimmune hepatitis, Celiac disease, Raman's disease or related to medications (supplements which he has discontinued or NSAIDS which he was advised to stop). Treatment 1. Elevated LFTs LAB: LIVER PROFILE LAB: HEPATITIS B SURFACE ANTIBODY LAB: HEPATITIS C ANTIBODY LAB: HCV LIVER FIBROSIS, FIBRO TEST LAB: PROTHROMBIN TIME (PT, INR) LAB: HEPATITIS B SURFACE ANTIGEN Notes: PATIENT INSTRUCTIONS: HAVE LIVER TESTS CHECKED IN A MONTH - TAKE ACETAMINIPHEN (TYLENOL) INSTEAD OF IBURPOFEN FOR HEADACHES CUT BACK ON ALCOHOL TO 2-3 DRINKS ON WEEKENDS. 2. Family history of colon cancer Notes: Three 2nd degree family members with history of colon cancer (? in their 50's) Patient reports paternal grandmother and two paternal uncles had colon cancer (one uncle and 2nd uncle had surgery for colon cancer in their 50\'s). Father has had colon polyps removed in his 60's. Gael was advised to have his 1st screening colonoscopy at age 42 yrs given above family history. . Follow Up 2 Months (Reason: FU OF ELEVATED LFTS LABS IN [facility]: 04/21/19 Normal CBC, INR 0.9, LFTs AST 36, ALT 41, GGT 129 07/26 DARWIN and anti smooth muscle antibody were negative, serologies for celiac sprue were normal. 10/2014 hepatitis is C antibody was negative, hepatitis-B serology showed immunity to hepatitis-B 07/2017 ferritin 244 - genetic testing for hemochromatosis was negative. IMAGING STUDIES: 08/25 Abd US showed: Normal-appearing liver. The left kidney is slightly larger than the right. Left lower pole renal stone. ENDOSCOPIC PROCEDURES: 04/06/20 COLONOSCOPY SHOWED: Five small polyps removed. Moderate diverticulosis seen in the left colon. Normal end to end anastomosis noted at 20 cms with a few sutures in place. Moderate hemorrhoids on retroflexed exam. Plan: Repeat Colonoscopy interval based on path results - in 3-5 years if polyps are adenomatous and 10 years if polyps are hyperplastic. Above findings were reviewed with the patient and colon polyps and diverticulosis handouts were given in the discharge area BIOPSIES SHOWED: Colon, transverse, polypectomies: - Colonic mucosa with serrated architecture and some features of sessile serrated polyp. - Colonic mucosa with thermal artifact and features of inflammatory polyp. - Multiple additional levels examined. [facility] Medical History (Updated 07/08/24 @ 18:56 by Johanna Clay MD) Hiatal hernia Diverticulum of stomach Diverticulum of duodenum Pectoralis muscle strain Asthma Elevated LFTs Asthma Hypogonadotropic hypogonadism Surgical History History of colonoscopy Family History Paternal Grandfather Colon cancer Mother No problems noted. Father Alive and well Social History Housing: House Alcohol intake: current Alcohol intake frequency: does not drink Alcohol type: beer Patient Tobacco Use Status: Never used Tobacco e-Cigarette/Vaping Use: Never Used Second Hand Smoke Exposure: No service: No Current occupational status: employed Cognitive needs: No Hearing needs: No Vision needs: No Review of Systems Const Denies fever(s), Denies headache(s) and Denies weight loss Eyes Denies eye discharge and Denies irritation ENT Reports Normal hearing present, Denies dysphagia, Denies dizziness and Denies headache(s) Card Denies chest pain, Denies leg edema and Denies dyspnea on exertion Resp Denies cough, Denies dyspnea on exertion and Reports wheezing GI Reports abdominal pain, Denies change in bowel habits, Denies dysphagia and Denies heartburn Denies dysuria, Reports testicular mass (painful lump inleft testicle), Reports urinary frequency and Reports other Musc Denies back pain and Denies arthralgias Skin/Breast Denies pruritus, Denies rash and Denies jaundice Neuro Reports Normal hearing present, Denies Abnormal speech present, Denies dizziness, Denies headache(s) and Denies seizure-like activity Psych Denies anxiety, Denies depression and Denies panic attacks Endo Denies cold intolerance, Denies flushing and Denies heat intolerance Ty/Lymph Denies easy bleeding and Denies easy bruising Aller/Immun Reports wheezing Physical Exam Vital Signs: Last Vital Signs Pulse 77 07/08/24 14:04 BP 110/57 L 07/08/24 14:04 Pulse Ox 96 07/08/24 14:04 Oxygen Delivery Method Room Air 07/08/24 14:04 BMI result Body Mass Index 28.5 Const General: healthy appearing and no acute distress Nutritional Appearance: overweight Orientation/consciousness: patient oriented x3 Limitations: no limitations HEENT Head: Yes normal to inspection Ears: hearing grossly normal bilaterally Mouth: Normal oral and palatal mucosa present Eyes Sclerae: sclerae normal Pupils: Equal, round and reactive pupils present Neck Neck: Yes normal visual inspection Chest Chest palpation & inspection: normal inspection of the chest Resp Effort & Inspection: normal respiratory effort Auscultation: clear to auscultation bilaterally Cardio Palpation: normal PMI Rate: regular rate Rhythm: regular rhythm Heart sounds: S1 normal heart sound present, S2 normal heart sound present and no murmurs GI Palpation (GI): Soft to palpation, nontender and No hepatosplenomegaly present Auscultation: normal bowel sounds Rectal Exam - Male: Yes deferred Skin General skin exam: no rashes or lesions noted Neuro General: patient oriented x3, gait normal and moves all extremities Cranial nerves: Yes Equal, round and reactive pupils present and Yes Normal hearing present Speech: No Abnormal speech present Psych Appearance: grossly normal Mental Status: mental status grossly normal Assessment & Plan Assessment & Plan (1) Hiatal hernia: Code(s): K44.9 - Diaphragmatic hernia without obstruction or gangrene Category: Medical (2) Diverticulum of stomach: Code(s): K31.4 - Gastric diverticulum Category: Medical (3) Diverticulum of duodenum: Code(s): K57.10 - Diverticulosis of small intestine without perforation or abscess without bleeding Category: Medical (4) Serrated polyp of colon: Comment: 03/28 Colonoscopy five small polyps removed - bx showed an inflammatory polyp and some polyps had some features of sessile serrated polyp. . Moderate diverticulosis seen in the left colon. Normal end to end anastomosis noted at 20 cms with a few sutures in place. Moderate hemorrhoids on retroflexed exam. 08/24/23 Four small hyperplastic polyps were removed during FU colonoscopy Repeat colonoscopy was advised in 5 years due to history of adenomatous colon polyps. Code(s): K63.5 - Polyp of colon Category: Medical (5) Diverticulosis of colon: Code(s): K57.30 - Diverticulosis of large intestine without perforation or abscess without bleeding Category: Medical (6) Testicle lump: Code(s): N50.89 - Other specified disorders of the male genital organs Category: Medical Plan: Urgent referral to Urology Plan 43 year old overweight male with rotator cuff impingement, asthma, hypogonadotropic hypogonadism seen for follow-up of abnormal barium swallow. Patient was previously seen in the GI clinic for evaluation of intermittent elevation of LFTs since 2010. Hepatitis B and C serologies were negative. He takes 3-4 drinks on weekends and a few drinks during the week. Pattern of LFT elevation is not suggestive of ETOH related hepatitis since ALT > AST. Elevated LFTs are most likely due to steatohepatitis. Other less likely possiblities include autoimmune hepatitis, Celiac disease, Raman's disease or related to medications (supplements which he has discontinued or NSAIDS which he was advised to stop). FU LFTS were normal. 03/18/24 BARIUM SWALLOW SHOWED: 1. Small type I hiatal hernia. No gastroesophageal reflux observed. 2. Thickened appearance of the gastric rugal folds, suggestive of gastritis. 3. Moderate-sized diverticulum present in the stomach distal second/proximal third segment of the duodenum. Pt reassured - no treatment needed for small hiatal hernia and gastric and duodenal diverticulum Pt educated regarding potential complications of infection or bleeding and advised to seek urgent medical attention in case of complications Patient advised to schedule a an upper endoscopy for follow-up of GERD (screen for Olivarez's esophagus) and evaluation of gastric and duodenal diverticulii LLQ pain is likely musculoskeletal and patient advised to use a heating pad and topical analgesics (Voltaren Gel) Can stop working out for a week to see if abdominal pain improves Urgent urology referral was sent for evaluation of testicular lump Orders: Referrals Urology Referral N50.89 - Other specified disorders of the male genital organs Coding Level of Care Code Est Pt Level 4 (16643) Diagnoses Hiatal hernia K44.9 Diverticulum of stomach K31.4 Diverticulum of duodenum K57.10 Serrated polyp of colon K63.5 Diverticulosis of colon K57.30 Testicle lump N50.89 Time Spent (min) 28
[2024-07-08 14:04] VITALS: BP 110/57; PULSE 77; O2SAT 96; BMI 28.5
== END 2024-07-08 15:13 | disposition home or self-care (01) ==
PROVIDERS: PCP Internal Medicine; Visit Provider Internal Medicine Gastroenterology
DX: K44.9 Diaphragmatic hernia without obstruction or gangrene (principal); K31.4 Gastric diverticulum; K57.10 Diverticulosis of small intestine without perforation or abscess without bleeding; K63.5 Polyp of colon; K57.30 Diverticulosis of large intestine without perforation or abscess without bleeding; N50.89 Other specified disorders of the male genital organs
CPT/HCPCS: 99214

== ENCOUNTER 2024-07-10 15:14 | Outpatient (AMB) | payer BC, SELFPAY ==
--- NOTE | 2024-07-10 15:27 | MHC.OFFVIS ---
Intake Visit Reasons: testicular lump/hypogonadism Intake Note: New Patient presents for initial visit for testicular lump and pain Urology Medications: testosterone Blood Thinner: none Balloon Sander Required: No Pocketed Spring Machine Operator: Pocketed Spring Machine Operator offered & declined Accompanied by: Self / Same As Patient Allergies No Known Allergies [No Known Allergies*] Allergy (Verified 07/10/24 20:05) Medication List - Last Reconciled 07/10/24 by JERROD GreerP- albuterol sulfate 90 mcg/actuation 2 puffs inhalation QID PRN fluticasone furoate-vilanterol 200-25 mcg/dose (Breo Ellipta) 1 inh inhalation DAILY 30 days fluticasone propionate 50 mcg/actuation 2 sprays intranasal DAILY 30 days ibuprofen 600 mg PO Q6H PRN montelukast (Singulair) 10 mg PO BEDTIME omeprazole 20 mg PO DAILY syringe with needle, safety As directed syringe with needle, safety (BD Integra Syringe) Once a week testosterone cypionate 70 mg (0.35 mL) IM QWEEK 30 days HPI Comments Details: Gael is a pleasant 43-year-old male patient of Dr. Presley. He has a past medical history of hypogonadism, hiatal hernia, and asthma. He presents to the office today as a new patient for new onset left testicular pain and swelling he has been experiencing for approximately 1 week. He reports noting increase left-sided testicular pain and swelling last Sunday that has somewhat improved however is enquiring follow-up for further assessment evaluation. He denies any associated nausea or vomiting with left-sided testicular pain. He reports swelling and pain has significantly improved however he does continue to experience pain with ambulation and at times at rest. In assessment of the patient today varicoceles are present throughout the scrotum today however right side greater than left. Small palpable left-sided epididymal head tail cyst noted otherwise no open areas, lesions,or masses palpated throughout the area. He does report previous history of a vasectomy with [facility] approximately 8 years ago. He also discusses his history of hypogonadism and follows up with through [facility]. He otherwise denies any bothersome urinary issues or concerns. He denies urinary urgency, urinary frequency, incontinence, nocturia, hematuria, dysuria, foul smelling urine, changes to urinary stream, flank pain, fever, and or chills. He is happy with his current voiding parameters. Symptoms began the previous Sunday without a specific trigger or preceding activity. The patient experienced progressive worsening throughout the day, but delayed seeking immediate medical attention due to their perceived pain tolerance. Swelling noticed on the left testicle decreased over subsequent days, yet a palpable lump remained and continued to cause sensitivity, especially upon contact. The patient's past medical history is significant for varicocele, identified via ultrasound 15-20 years ago, and a vasectomy performed approximately eight years ago. The patient expressed concern regarding a perceived absence of vasectomy clips on the left side, which coincides with the current complaint of a palpable lump. There is no associated systemic symptomatology such as nausea or vomiting. Initial pain severity lessened over time, but remains persistent. Previous swelling is noted to have been heavier and more intrusive during physical movement, leading to increased discomfort. Physical Exam - Genitourinary- Palpable cystic mass located underneath the left testicle, less firm and tender, mobile, indicative of a cyst rather than solid mass. Right testicle and zones unremarkable. Left epididymis feels subtly more prominent when compared bilaterally; this could be secondary to cystic presence. Plan I plan for a diagnostic ultrasound to verify the suspected testicular cyst. Given its characteristics of being fluid-like and mobile, malignancy appears unlikely. Supportive undergarments are recommended to promote fluid reabsorption, while analgesics may be utilized for pain relief. Considering the patient's history of varicocele, no immediate action is indicated. The patient is reassured about the soft and movable nature of the cyst, suggesting a benign condition. Surgical intervention will only be contemplated if symptoms persist or worsen, with discussion of risks associated with potential surgery to be addressed upon confirmation of ultrasound results. Patient was informed and verbally consented to the use of an ambient scribe for clinic note documentation during this visit. Discussion Notes Following a thorough discussion, I explained that the palpable testicular mass is likely a cyst, attributing its softness, mobility, and location to non-cancerous origins. The patient was advised that wearing supportive undergarments might help alleviate discomfort and promote natural resolution of fluid accumulation. We discussed the ultrasound as a confirmatory step with its procedural risks and non-invasive status, obtaining consent for this diagnostic intervention. The patient was relieved to hear that the characteristics of the mass do not align with typical testicular cancer presentations. Return precautions were clearly stated as any exacerbation of symptoms or development of systemic signs would necessitate seeking immediate care. Furthermore, I clarified that surgical options would be considered only if conservative measures fail, mindful of potential postoperative complications, including scar tissue formation. Follow-up would be achieved by reviewing the ultrasound results at the next appointment, with the understanding that emergent concerns would prompt immediate contact. [facility] Medical History Hiatal hernia Diverticulum of stomach Diverticulum of duodenum Pectoralis muscle strain Asthma Elevated LFTs Asthma Hypogonadotropic hypogonadism Surgical History History of colonoscopy Family History Paternal Grandfather Colon cancer Mother No problems noted. Father Alive and well Social History Housing: House Alcohol intake: current Alcohol intake frequency: does not drink Alcohol type: beer Patient Tobacco Use Status: Never used Tobacco e-Cigarette/Vaping Use: Never Used Second Hand Smoke Exposure: No service: No Current occupational status: employed Cognitive needs: No Hearing needs: No Vision needs: No Review of Systems Const All systems reviewed & are unremarkable except as noted in HPI and below Physical Exam Const General: cooperative, healthy appearing, comfortable, no acute distress, well developed, alert and awake Orientation/consciousness: patient oriented x3 Limitations: no limitations HEENT Head: Yes normal to inspection, Yes normocephalic and Yes atraumatic Ears: hearing grossly normal bilaterally Eyes General: appearance normal, both eyes and all related structures Neck Neck: Yes normal visual inspection and Yes trachea midline Chest Chest palpation & inspection: normal inspection of the chest Resp Effort & Inspection: normal respiratory effort and able to speak in complete sentences Cardio Rate: regular rate GI Inspection: Yes normal to inspection General: Yes no CVA tenderness Back/Spine/Pelvis Back: no CVA tenderness Skin General skin exam: no rashes or lesions noted Neuro General: patient oriented x3 Extrem General: Yes normal to inspection Psych Appearance: grossly normal and well kempt Mental Status: mental status grossly normal Speech and movement: Normal speech and movement present and Clear speech present Affect: normal affect Attitude: cooperative Thought process: Normal thought process present Thought content: Normal thought content present Insight: Fair insight present (Psych) Judgement: Fair judgement present (Psych) Results AMB Urinalysis, Automated UA Leukoctes 0 Willie/uL Last Edit by iGuidersscooter Zavala on 07/10/24 15:41 UA Nitrite Last Edit by Uvaldo Zavala on 07/10/24 15:41 UA Urobilinogen 0.2 mg/dL Last Edit by Uvaldo Zavala on 07/10/24 15:41 UA Protein 0 mg/dL Last Edit by [employer] on 07/10/24 15:41 UA pH 7.0 Last Edit by [employer] on 07/10/24 15:41 UA Blood 0 Americo/uL Last Edit by [employer] on 07/10/24 15:41 UA Specific [place] 1.010 Last Edit by DoAppdenise [employer] on 07/10/24 15:41 UA Ketone Last Edit by [employer] on 07/10/24 15:41 UA Bilirubin 0 mg/dL Last Edit by [employer] on 07/10/24 15:41 UA Glucose 0 mg/dL Last Edit by [employer]denise [employer] on 07/10/24 15:41 Results Reviewed Results Reviewed: Laboratory Last Values Urine pH (Auto) 7.0 07/10/24 15:40 Specific [place] (Auto) 1.010 07/10/24 15:40 Urine Protein (Auto) 0 mg/dL 07/10/24 15:40 Glucose (UA)(Auto) 0 mg/dL 07/10/24 15:40 Urine Blood (Auto) 0 Americo/uL 07/10/24 15:40 Urine Bilirubin (Auto) 0 mg/dL 07/10/24 15:40 Urine Urobilinogen (Auto) 0.2 mg/dL 07/10/24 15:40 Leukocyte Esterase (Auto) 0 Willie/uL 07/10/24 15:40 Assessment & Plan Assessment & Plan (1) Epididymal cyst: Code(s): N50.3 - Cyst of epididymis Category: Medical (2) Testicle lump: Code(s): N50.89 - Other specified disorders of the male genital organs Category: Medical Plan In office urinalysis results reviewed with the patient today; as noted above. Patient Instructions - Wear more supportive underwear - Use [id number] pain relief such as acetaminophen or ibuprofen as needed. - Attend the scheduled ultrasound at your convenience for further evaluation. - Seek immediate medical attention if you experience increased pain, nausea, or vomiting. Will obtain scrotal ultrasound for further assessment evaluation. He currently denies any bothersome urinary issues. Reports be happy with current voiding parameters. Follow-up in 1-2 months with imaging to be completed prior; or sooner with any issues, concerns, and or questions. Orders: Orders US scrotum Today N50.3 - Cyst of epididymis AMB Urinalysis Automated Today Z13.9 - Encounter for screening, unspecified Patient Instructions: The patient had an opportunity to ask questions regarding the treatment plan. All questions were answered. Physical exam, labs, and imaging were discussed and reviewed in detail. As well as risks, benefits, and discussion of treatment choices. No major barriers to understanding were identified. The patient expressed understanding and agreement with the above treatment plan. The patient was made aware they should contact our office by phone for worsening of their current condition, the appearance of new symptoms, or with any questions or concerns. Compliance is encouraged with any medications and follow up testing that is ordered. It is a privilege to be allowed the opportunity to participate in? your urological care.? Again, if you have any questions or concerns If you have any questions or concerns please do not hesitate to contact me. The office is [phone]. This note is constructed using voice recognition software. While every effort has been made to ensure accuracy rice cleaning machine tender errors may have been included. Yours sincerely, TAMIKA Greer Coding Level of Care Code New Pt Level 3 (10401) Diagnoses Epididymal cyst N50.3 Testicle lump N50.89
== END 2024-07-10 16:04 | disposition home or self-care (01) ==
LOC: HO.HUSH 15:15
PROVIDERS: PCP Internal Medicine; Visit Provider Nurse Practitioner Family
DX: N50.3 Cyst of epididymis (principal); N50.89 Other specified disorders of the male genital organs; Z13.9 Encounter for screening, unspecified
CPT/HCPCS: 99203

== ENCOUNTER → 2024-07-10 15:14 | Outpatient (BNVA) | payer BC, SELFPAY | PROVIDERS: PCP Internal Medicine; Visit Provider Nurse Practitioner Family | DX: N50.3 Cyst of epididymis (principal); N50.89 Other specified disorders of the male genital organs | CPT/HCPCS: 81003 ==

== ENCOUNTER 2024-09-02 10:20 | Outpatient (REF) | payer BC, SELFPAY ==
--- NOTE | ~2024-09-02 | US_ITS ---
CLINICAL HISTORY: N50.3 - Cyst of epididymis US Scrotum with Doppler Comparison: None Findings: Right testicle normal echotexture, 4.4 x 1.9 x 3.0 cm. Left testicle normal echotexture, 3.9 x 2.0 x 2.7 cm. The robotics technologist noted apparent decreased color flow to the bilateral testes. This has a symmetrical appearance. Normal arterial/venous spectral tracing of both testicles. Normal epididymides. Small bilateral varicoceles. No hydroceles. IMPRESSION: 1. The robotics technologist noted apparent decreased color flow to the bilateral testes. This may be incidental or could indicate a degree of bilateral testicular scarring. 2. There are small bilateral varicoceles. This document has been electronically signed by: Gloria Chandler MD on 09/02/2024 14:29:10
== END 2024-09-02 10:21 | disposition home or self-care (01) ==
LOC: HO.HMGCX 10:20
PROVIDERS: Visit Provider Nurse Practitioner Family
DX: N50.3 Cyst of epididymis (principal)
CPT/HCPCS: 76870

== ENCOUNTER → 2024-09-02 10:22 | Outpatient (BNV) | payer BC, SELFPAY | PROVIDERS: Visit Provider Radiology Diagnostic Radiology | DX: I86.1 Scrotal varices (principal); R93.813 Abnormal radiologic findings on diagnostic imaging of testicles, bilateral | CPT/HCPCS: 76870; 93976 ==

== ENCOUNTER 2024-09-11 12:51 | Outpatient (AMB) | payer BC, SELFPAY ==
--- NOTE | 2024-09-11 13:00 | A.OFFVIS_ITS ---
Intake Visit Reasons: 2m/US(set) Intake Note: Patient presents for follow up on:testicular lump, epididymal cyst, and ultrasound results Imaging Completed: 09/02/24 Urology Medications: testosterone Blood Thinner: none Fiscal Manager Required: No Assistant Professor Of Sociology: Assistant Professor Of Sociology offered & declined Accompanied by: Self / Same As Patient Allergies No Known Allergies [No Known Allergies*] Allergy (Verified 09/11/24 14:07) Medication List - Last Reconciled 09/11/24 by YAZ Greer-AMINATA albuterol sulfate 90 mcg/actuation 2 puffs inhalation QID PRN fluticasone furoate-vilanterol 200-25 mcg/dose (Breo Ellipta) 1 inh inhalation DAILY 30 days fluticasone propionate 50 mcg/actuation 2 sprays intranasal DAILY 30 days ibuprofen 600 mg PO Q6H PRN montelukast (Singulair) 10 mg PO BEDTIME omeprazole 20 mg PO DAILY syringe with needle, safety As directed syringe with needle, safety (BD Integra Syringe) Once a week testosterone cypionate 70 mg (0.35 mL) IM QWEEK 30 days HPI Comments Details: Gael is a pleasant 44-year-old male patient of Dr. Presley. He has a past medical history of hypogonadism, hiatal hernia, and asthma. He presents to the office today for follow-up of his left-sided testicular pain and swelling he had been experiencing. Of note, patient was seen approximately 2 months ago as a new patient for new onset left testicular pain and swelling he had been experiencing at which time physical assessment noted small palpable left-sided epididymal head tail cyst otherwise no open areas, lesions, or masses palpated throughout the area. A scrotal ultrasound was ordered and these results were reviewed and communicated with the patient today. 08/31 there are small bilateral varicoceles with question of bilateral testicular scarring per radiology report. In discussion with the patient today he reports pain he had been experiencing subsided shortly after his initial appointment. He does have a previous history of a vasectomy with [facility] approximately 8 years ago. He also discusses his history of hypogonadism and follows up with through [facility]. He otherwise denies any bothersome urinary issues or concerns. He denies urinary urgency, urinary frequency, incontinence, nocturia, hematuria, dysuria, foul smelling urine, changes to urinary stream, flank pain, fever, and or chills. He is happy with his current voiding parameters. All questions were answered. He otherwise offers no other issues or concerns at this time. [facility] Medical History Hiatal hernia Diverticulum of stomach Diverticulum of duodenum Pectoralis muscle strain Asthma Elevated LFTs Asthma Hypogonadotropic hypogonadism Surgical History History of colonoscopy Family History Paternal Grandfather Colon cancer Mother No problems noted. Father Alive and well Social History Housing: House Alcohol intake: current Alcohol intake frequency: does not drink Alcohol type: beer Patient Tobacco Use Status: Never used Tobacco e-Cigarette/Vaping Use: Never Used Second Hand Smoke Exposure: No service: No Current occupational status: employed Cognitive needs: No Hearing needs: No Vision needs: No Review of Systems Const All systems reviewed & are unremarkable except as noted in HPI and below Physical Exam Const General: cooperative, healthy appearing, comfortable, no acute distress, well developed, alert and awake Orientation/consciousness: patient oriented x3 Limitations: no limitations HEENT Head: Yes normal to inspection, Yes normocephalic and Yes atraumatic Ears: hearing grossly normal bilaterally Eyes General: appearance normal, both eyes and all related structures Neck Neck: Yes normal visual inspection and Yes trachea midline Chest Chest palpation & inspection: normal inspection of the chest Resp Effort & Inspection: normal respiratory effort and able to speak in complete sentences Cardio Rate: regular rate GI Inspection: Yes normal to inspection General: Yes no CVA tenderness Back/Spine/Pelvis Back: no CVA tenderness Skin General skin exam: no rashes or lesions noted Neuro General: patient oriented x3 Extrem General: Yes normal to inspection Psych Appearance: grossly normal and well kempt Mental Status: mental status grossly normal Speech and movement: Normal speech and movement present and Clear speech present Affect: normal affect Attitude: cooperative Thought process: Normal thought process present Thought content: Normal thought content present Insight: Fair insight present (Psych) Judgement: Fair judgement present (Psych) Results AMB Urinalysis, Automated UA Leukoctes 0 Willie/uL Last Edit by Antoine Ortega, [facility] on 09/11/24 13:27 UA Nitrite Last Edit by Antoine Galindoiel, [facility] on 09/11/24 13:27 UA Urobilinogen 3.5 mg/dL Last Edit by Antoine Galindoiel, [facility] on 09/11/24 13:27 UA Protein 0 mg/dL Last Edit by Antoine Galindoiel, [facility] on 09/11/24 13:27 UA pH 6.5 Last Edit by Antoine Galindoiel, [facility] on 09/11/24 13:27 UA Blood 0 Americo/uL Last Edit by Antoine Galindoiel, [facility] on 09/11/24 13:27 UA Specific [place] 1.010 Last Edit by Antoine Galindoiel, [facility] on 09/11/24 13:27 UA Ketone Last Edit by Antoine [facility], [facility] on 09/11/24 13:27 UA Bilirubin 0 mg/dL Last Edit by Antoine Galindoiel, [facility] on 09/11/24 13:27 UA Glucose 0 mg/dL Last Edit by [facility], [facility] on 09/11/24 13:27 Results Reviewed Results Reviewed: Laboratory Last Values Urine pH (Auto) 6.5 09/11/24 13:21 Specific [place] (Auto) 1.010 09/11/24 13:21 Urine Protein (Auto) 0 mg/dL 09/11/24 13:21 Glucose (UA)(Auto) 0 mg/dL 09/11/24 13:21 Urine Blood (Auto) 0 Americo/uL 09/11/24 13:21 Urine Bilirubin (Auto) 0 mg/dL 09/11/24 13:21 Urine Urobilinogen (Auto) 3.5 mg/dL 09/11/24 13:21 Leukocyte Esterase (Auto) 0 Willie/uL 09/11/24 13:21 Date of Service: 09/02/24 Procedure(s): US scrotum Findings: Right testicle normal echotexture, 4.4 x 1.9 x 3.0 cm. Left testicle normal echotexture, 3.9 x 2.0 x 2.7 cm. The remote sensing technologist noted apparent decreased color flow to the bilateral testes. This has a symmetrical appearance. Normal arterial/venous spectral tracing of both testicles. Normal epididymides. Small bilateral varicoceles. No hydroceles. IMPRESSION: 1. The remote sensing technologist noted apparent decreased color flow to the bilateral testes. This may be incidental or could indicate a degree of bilateral testicular scarring. 2. There are small bilateral varicoceles. Assessment & Plan Assessment & Plan (1) Epididymal cyst: Code(s): N50.3 - Cyst of epididymis Category: Medical (2) Bilateral varicoceles: Code(s): I86.1 - Scrotal varices Category: Medical (3) Testicle lump: Code(s): N50.89 - Other specified disorders of the male genital organs Category: Medical Plan In office urinalysis results reviewed with the patient today; as noted above. Recent scrotal ultrasound results reviewed with the patient today; as noted above. We discussed potential causes of pain patient had been experiencing. Reassurance provided. We discussed surveillance monitoring verses p.r.n. follow-up. He currently denies any bothersome urinary issues or concerns. He reports be happy with current voiding parameters. Follow-up; PRN Orders: Orders AMB Urinalysis Automated Today Z13.9 - Encounter for screening, unspecified Patient Instructions: The patient had an opportunity to ask questions regarding the treatment plan. All questions were answered. Physical exam, labs, and imaging were discussed and reviewed in detail. As well as risks, benefits, and discussion of treatment choices. No major barriers to understanding were identified. The patient expressed understanding and agreement with the above treatment plan. The patient was made aware they should contact our office by phone for worsening of their current condition, the appearance of new symptoms, or with any questions or concerns. Compliance is encouraged with any medications and follow up testing that is ordered. It is a privilege to be allowed the opportunity to participate in? your urological care.? Again, if you have any questions or concerns If you have any questions or concerns please do not hesitate to contact me. The office is [phone]. This note is constructed using voice recognition software. While every effort has been made to ensure accuracy glass processing worker errors may have been included. Yours sincerely, Mirna Greenberg, TEMPLATE INSPECTOR-BC Coding Level of Care Code Est Pt Level 3 (18922) Diagnoses Epididymal cyst N50.3 Bilateral varicoceles I86.1 Testicle lump N50.89
== END 2024-09-11 13:34 | disposition home or self-care (01) ==
LOC: HO.HUSH 12:52
PROVIDERS: PCP Internal Medicine; Visit Provider Nurse Practitioner Family
DX: N50.3 Cyst of epididymis (principal); I86.1 Scrotal varices; N50.89 Other specified disorders of the male genital organs; Z13.9 Encounter for screening, unspecified
CPT/HCPCS: 99213

== ENCOUNTER → 2024-09-11 12:51 | Outpatient (BNVA) | payer BC, SELFPAY | PROVIDERS: PCP Internal Medicine; Visit Provider Nurse Practitioner Family | DX: N50.3 Cyst of epididymis (principal) | CPT/HCPCS: 81003 ==

== ENCOUNTER 2025-01-15 13:24 | Outpatient (AMB) | payer BC, SELFPAY ==
[2025-01-15 13:27] VITALS: BP 159/84; PULSE 70; BMI 29.6
--- NOTE | 2025-01-15 13:27 | A.OFFVIS_ITS ---
Vital Signs 01/15/25 13:27 Height 6 ft Weight 218 lb 4.122 oz BMI 29.6 BP 159/84 H Blood Pressure Location Lt brachial Position Sitting Pulse 70 Intake Visit Reasons: 6 month follow up Intake Note: Gael presents to in office follow up of diverticulosis. CC: Patient denies having any GI symptom today. He states that he was called to schedule EGD but was not sure if it was from here. Marketing Administrative Assistant Required: No Accompanied by: self Allergies No Known Allergies (No Known Allergies*) Allergy (Verified 09/11/24 14:07) Medication List - Last Reconciled 01/15/25 by Johanna Clay MD albuterol sulfate 90 mcg/actuation 2 puffs inhalation QID PRN fluticasone furoate-vilanterol 200-25 mcg/dose (Breo Ellipta) 1 ea inhalation DAILY ibuprofen 600 mg PO Q6H PRN montelukast (Singulair) 10 mg PO BEDTIME syringe with needle, safety As directed syringe with needle, safety (BD Integra Syringe) Once a week testosterone cypionate 70 mg (0.35 mL) IM QWEEK 30 days HPI HPI 6 month follow up: Details: GI CLINIC VISIT FOR THIS 44-YEAR-OLD MALE FOR EVALUATION OF ABNORMAL BARIUM SWALLOW. CHRONIC ILLNESSES: Rotator cuff impingement, asthma, hypogonadotropic hypogonadism. TODAY'S VISIT Patient denies having any GI symptom today. He states that he was called to schedule EGD but was not sure if it was from here. Seen by International Marketing Manager for coughing x 6 months and coughing has resolved PAST VISITS: Has chronic pain left of the umblicus which started when he had frequent coughing - since 8-9 months Pain is constant, stabbing pain and 3/10 in intensity (was worse before). Notes increased pain when he leans back No change with abd pain with eating Denies any recent change in BM - has a BM 5 times a day. Takes a high fibre diet On 07/03/24 @ 11:33 Hossein Nunez Wrote To Johanna Clay please see Barium swallow with divertuculum of the stomach and duodenum. Also small HH and symtomatic. Had uncontrollable coughing for months Coughing has gradually subsided. [place] a painful lump in the left testicle since 3/28/25 and has been trying to contact his PCP to order an US. Has been avoiding ibuprofen over the past month. Took theraflu with acetaminophen - twice a week for a cold. Intermittent elevation of LFTs since 02/2011. Hep serologies were negative in the past. Pt denies past history of jaundice or known family history of liver dise ase. Notes some fatigue, denies jaundice. Genetic testing for Hereditary Hemochromatosis was negative. Denies dysphagia, heartburn, nausea or vomiting, change in appetite or weight. Patient denies change in bowel habits, black stools or rectal bleeding He was taking supplements which he discontinued several weeks ago. Takes Ibuprofen 250 mg, three tab 5 times a week. Sister recently diagnosed with breast cancer at age 40 yrs. Paternal cousin diagnosed with testicular cancer in his 30's. PAST GI HISTORY BY REVIEW OF MEDICAL RECORDS: Last seen on 03/19/2019: Assessments 1. Elevated LFTs - R94.5 (Primary) 2. Family history of colon cancer - Z80.0 38 year old overweight male with rotator cuff impingement, asthma, hypogonadotropic hypogonadism seen for evaluation of intermittent elevation of LFTs since 2010. Hepatitis B and C serologies were negative. He takes 3-4 drinks on weekends and a few drinks during the week. Pattern of LFT elevation is not suggestive of ETOH related hepatitis since ALT > AST. Elevated LFTs aremost likely due to steatohepatitis. Other less likely possiblities include autoimmune hepatitis, Celiac disease, Raman's disease or related to medications (supplements which he has discontinued or NSAIDS which he was advised to stop). Treatment 1. Elevated LFTs LAB: LIVER PROFILE LAB: HEPATITIS B SURFACE ANTIBODY LAB: HEPATITIS C ANTIBODY LAB: HCV LIVER FIBROSIS, FIBRO TEST LAB: PROTHROMBIN TIME (PT, INR) LAB: HEPATITIS B SURFACE ANTIGEN Notes: PATIENT INSTRUCTIONS: HAVE LIVER TESTS CHECKED IN A MONTH - TAKE ACETAMINIPHEN (TYLENOL) INSTEAD OF IBURPOFEN FOR HEADACHES CUT BACK ON ALCOHOL TO 2-3 DRINKS ON WEEKENDS. 2. Family history of colon cancer Notes: Three 2nd degree family members with history of colon cancer (? in their 50's) Patient reports paternal grandmother and two paternal uncles had colon cancer (one uncle and 2nd uncle had surgery for colon cancer in their 50\'s). Father has had colon polyps removed in his 60's. Gael was advised to have his 1st screening colonoscopy at age 42 yrs given above family history. . Follow Up 2 Months (Reason: FU OF ELEVATED LFTS LABS IN [facility]: 04/21/19 Normal CBC, INR 0.9, LFTs AST 36, ALT 41, GGT 129 07/26 [place] and anti smooth muscle antibody were negative, serologies for celiac sprue were normal. 10/2014 hepatitis is C antibody was negative, hepatitis-B serology showed immunity to hepatitis-B 07/2017 ferritin 244 - genetic testing for hemochromatosis was negative. IMAGING STUDIES: 08/25 Abd US showed: Normal-appearing liver. The left kidney is slightly larger than the right. Left lower pole renal stone. ENDOSCOPIC PROCEDURES: 04/06/20 COLONOSCOPY SHOWED: Five small polyps removed. Moderate diverticulosis seen in the left colon. Normal end to end anastomosis noted at 20 cms with a few sutures in place. Moderate hemorrhoids on retroflexed exam. Plan: Repeat Colonoscopy interval based on path results - in 3-5 years if polyps are adenomatous and 10 years if polyps are hyperplastic. Above findings were reviewed with the patient and colon polyps and diverticulosis handouts were given in the discharge area BIOPSIES SHOWED: Colon, transverse, polypectomies: - Colonic mucosa with serrated architecture and some features of sessile serrated polyp. - Colonic mucosa with thermal artifact and features of inflammatory polyp. - Multiple additional levels examined [facility] Medical History Hiatal hernia Diverticulum of stomach Diverticulum of duodenum Pectoralis muscle strain Asthma Elevated LFTs Asthma Hypogonadotropic hypogonadism Surgical History History of colonoscopy Family History Paternal Grandfather Colon cancer Mother No problems noted. Father Alive and well Social History Housing: House Alcohol intake: current Alcohol intake frequency: does not drink Alcohol type: beer Patient Tobacco Use Status: Never used Tobacco e-Cigarette/Vaping Use: Never Used Second Hand Smoke Exposure: No service: No Current occupational status: employed Cognitive needs: No Hearing needs: No Vision needs: No Review of Systems Const All systems reviewed & are unremarkable except as noted in HPI and below Physical Exam Vital Signs: Last Vital Signs Pulse 70 01/15/25 13:27 BP 159/84 H 01/15/25 13:27 BMI result Body Mass Index 29.6 Const General: healthy appearing and no acute distress Nutritional Appearance: average body habitus Orientation/consciousness: patient oriented x3 Limitations: no limitations HEENT Head: Yes normal to inspection Ears: hearing grossly normal bilaterally Eyes Sclerae: sclerae normal Pupils: Equal, round and reactive pupils present Neck Neck: Yes normal visual inspection Chest Chest palpation & inspection: normal inspection of the chest Resp Effort & Inspection: normal respiratory effort Auscultation: clear to auscultation bilaterally Cardio Palpation: normal PMI Rate: regular rate Rhythm: regular rhythm Heart sounds: S1 normal heart sound present, S2 normal heart sound present and no murmurs GI Palpation (GI): Soft to palpation, nontender and No hepatosplenomegaly present Auscultation: normal bowel sounds Rectal Exam - Male: Yes deferred Skin General skin exam: no rashes or lesions noted Neuro General: patient oriented x3, gait normal and moves all extremities Cranial nerves: Yes Equal, round and reactive pupils present Psych Appearance: grossly normal Mental Status: mental status grossly normal Assessment & Plan Assessment & Plan (1) Diverticulum of stomach: Code(s): K31.4 - Gastric diverticulum Category: Medical (2) Serrated polyp of colon: Comment: 03/28 Colonoscopy five small polyps removed - bx showed an inflammatory polyp and some polyps had some features of sessile serrated polyp. . Moderate diverticulosis seen in the left colon. Normal end to end anastomosis noted at 20 cms with a few sutures in place. Moderate hemorrhoids on retroflexed exam. 08/24/23 Four small hyperplastic polyps were removed during FU colonoscopy Repeat colonoscopy was advised in 5 years due to history of adenomatous colon p olyps. Code(s): K63.5 - Polyp of colon Category: Medical (3) Diverticulum of duodenum: Code(s): K57.10 - Diverticulosis of small intestine without perforation or abscess without bleeding Category: Medical (4) Hiatal hernia: Code(s): K44.9 - Diaphragmatic hernia without obstruction or gangrene Category: Medical (5) Right groin pain: Code(s): R10.31 - Right lower quadrant pain Category: Medical Plan 44 year old overweight male with rotator cuff impingement, asthma, hypogonadotropic hypogonadism seen for follow-up of abnormal barium swallow. Patient was previously seen in the GI clinic for evaluation of intermittent elev ation of LFTs since 2010. Hepatitis B and C serologies were negative. He takes 3-4 drinks on weekends and a few drinks during the week. Pattern of LFT elevation is not suggestive of ETOH related hepatitis since ALT > AST. Elevated LFTs are most likely due to steatohepatitis. Other less likely possiblities include autoimmune hepatitis, Celiac disease, Raman's disease or related to medications (supplements which he has discontinued or NSAIDS which he was advised to stop). FU LFTS were normal. 03/18/24 BARIUM SWALLOW SHOWED: 1. Small type I hiatal hernia. No gastroesophageal reflux observed. 2. Thickened appearance of the gastric rugal folds, suggestive of gastritis. 3. Moderate-sized diverticulum present in the stomach distal second/proximal third segment of the duodenum. Pt reassured - no treatment needed for small hiatal hernia and gastric and duodenal diverticulum Pt educated regarding potential complications of infection or bleeding and advised to seek urgent medical attention in case of complications Patient advised to schedule a an upper endoscopy for follow-up of GERD (screen for Olivarez's esophagus) and evaluation of gastric and duodenal diverticulii LLQ pain is likely musculoskeletal and patient advised to use a heating pad and topical analgesics (Voltaren Gel) Can stop working out for a week to see if abdominal pain improves Urgent urology referral was sent for evaluation of testicular mass 01/15/25 Pt notes he was seen by International Marketing Manager for coughing x 6 months and coughing has resolved and he discontinued Omeprazole. Pt was advised to schedule an EGD for FU gastric/duodenal diverticulum on barium swallow FU in 6 months Orders: Referrals GI Procedure Notification K31.4 - Gastric diverticulum, K44.9 - Diaphragmatic hernia without obstruction or gangrene Coding Level of Care Code Est Pt Level 3 (38106) Diagnoses Diverticulum of stomach K31.4 Serrated polyp of colon K63.5 Diverticulum of duodenum K57.10 Hiatal hernia K44.9 Right groin pain R10.31 Time Spent (min) 18
== END 2025-01-15 15:37 | disposition home or self-care (01) ==
LOC: HO.HGI 13:25
PROVIDERS: PCP Internal Medicine; Visit Provider Internal Medicine Gastroenterology
DX: K31.4 Gastric diverticulum (principal); K63.5 Polyp of colon; K57.10 Diverticulosis of small intestine without perforation or abscess without bleeding; K44.9 Diaphragmatic hernia without obstruction or gangrene; R10.31 Right lower quadrant pain
CPT/HCPCS: 99213